=== PATIENT | male | born 1965 | race Caucasian/White ===

== ENCOUNTER → 2016-09-05 | Outpatient (REF) | payer OTHER ==
[~2016-09-05] MED LIST: ADV250INH INH; ALBU17IN INH; AMLO5TAB2 PO; AUGM875T27 PO; AZIT500T2 PO; CELE-19 PO; CEPH500T PO; CLAR10TA13 PO; CLAR1TAB2 PO; DOXY100C PO; FLAG500T PO; GUAI20TA PO; IMOD2TAB14 PO; MYLICON PO; NEUR600T PO; NICO21PAT TD; NICO7DIS23 TD; PANT40TA2 PO; PRED20TA PO; ROXI1TAB2 PO; TYLE325T5 PO; TYLE650T30 PO; XANA0.25 PO; ZOCO40TA PO; [UNRECOGNIZED DRUG - REMARK]
[2016-09-05 12:39] LABS: ALBUMIN 3.8 GM/DL (3.2-5.2); ALBUMIN/GLOBULIN RATIO 1.27 (1.00-1.93); ALKALINE PHOSPHATASE 66 U/L (45-117); ALT/SGPT 25 U/L (12-78); ANION GAP 12 MEQ/L (8-16); AST/SGOT 16 U/L (15-37); BILIRUBIN,TOTAL 0.4 MG/DL (0.2-1.0); BLOOD UREA NITROGEN 13 MG/DL (7-18); CALCIUM LEVEL 9.7 MG/DL (8.5-10.1); CARBON DIOXIDE LEVEL 24 MEQ/L (21-32); CHLORIDE LEVEL 109 MEQ/L (98-107); CHOLESTEROL LEVEL 278 MG/DL (<200); CREATININE FOR GFR 0.82 MG/DL (0.70-1.30); GLOMERULAR FILTRATION RATE > 60.0 (>56); GLUCOSE, FASTING 87 MG/DL (70-105); POTASSIUM SERUM 4.8 MEQ/L (3.5-5.1); SODIUM LEVEL 145 MEQ/L (136-145); TOTAL PROTEIN 6.8 GM/DL (6.4-8.2); TRIGLYCERIDES LEVEL 113 MG/DL (<150)
== END ==
LOC: M SFHCPLAZ 09:05
PROVIDERS: ATTEND Physician Assistant
DX: I10 Essential (primary) hypertension (principal); E78.5 Hyperlipidemia, unspecified; Z12.5 Encounter for screening for malignant neoplasm of prostate

== ENCOUNTER → 2016-09-05 | Outpatient (CLI) | payer OTHER | LOC: M WUC 11:14 | PROVIDERS: ATTEND Internal Medicine Cardiovascular Disease | DX: Z51.81 Encounter for therapeutic drug level monitoring (principal) ==

== ENCOUNTER → 2016-09-05 | Outpatient (REF) | payer OTHER | LOC: M LABDRAWP 11:34 | PROVIDERS: ATTEND Psychiatry & Neurology Neurology | DX: Z79.899 Other long term (current) drug therapy (principal); R25.1 Tremor, unspecified ==

== ENCOUNTER → 2016-09-17 | Outpatient (CLI) | payer OTHER ==
[~2016-09-17] MED LIST changes: -IMOD2TAB14 PO; +IMOD2TAB16 PO
[2016-09-17 16:46] LABS: BASO # 0.1 K/mm3 (0.0-0.2); BASO % 1.2 % (0.0-1.0); EOS # 0.4 K/mm3 (0.0-0.50); EOS % 3.5 % (0.0-3.0); LARGE UNSTAINED CELL # 0.1 K/mm3 (0.0-0.4); LARGE UNSTAINED CELL % 1.3 % (0.0-4.0); LYMPH # 1.8 K/mm3 (1.5-4.5); LYMPH % 15.4 % (24.0-44.0); MEAN CORPUSCULAR HEMOGLOBIN 34.3 pg (27.0-33.0); MEAN CORPUSCULAR HGB CONC 33.7 g/dl (32.0-36.5); MEAN CORPUSCULAR VOLUME 101.9 fl (80.0-96.0); MONO # 0.7 K/mm3 (0.0-0.8); MONO % 6.5 % (0.0-5.0); NEUTROPHILS # 7.6 K/mm3 (1.8-7.7); NEUTROPHILS % 72.2 % (36.0-66.0); PLATELET COUNT, AUTOMATED 177 k/mm3 (150-450); RED CELL DISTRIBUTION WIDTH 14.1 % (11.5-14.5); WHITE BLOOD COUNT 10.5 K/mm3 (4.0-10.0)
[2016-09-17 17:18] LABS: ANION GAP 6 MEQ/L (8-16); BLOOD UREA NITROGEN 9 MG/DL (7-18); CALCIUM LEVEL 10.1 MG/DL (8.5-10.1); CARBON DIOXIDE LEVEL 32 MEQ/L (21-32); CHLORIDE LEVEL 105 MEQ/L (98-107); CREATININE FOR GFR 0.92 MG/DL (0.70-1.30); GLOMERULAR FILTRATION RATE > 60.0 (>56); GLUCOSE, FASTING 88 MG/DL (70-105); SODIUM LEVEL 143 MEQ/L (136-145)
[2016-09-17 17:22] LABS: POTASSIUM SERUM 5.4 MEQ/L (3.5-5.1)
== END ==
LOC: M WUC 14:11
PROVIDERS: ATTEND Internal Medicine Cardiovascular Disease
DX: R07.9 Chest pain, unspecified (principal); R06.02 Shortness of breath

== ENCOUNTER → 2016-12-12 | Outpatient (CLI) | payer OTHER ==
[~2016-12-12] MED LIST changes: +NICO7DIS2 TD; -NICO7DIS23 TD
[2016-12-12 15:47] LABS: ALBUMIN 3.9 GM/DL (3.2-5.2); ALBUMIN/GLOBULIN RATIO 1.22 (1.00-1.93); ALKALINE PHOSPHATASE 74 U/L (45-117); ALT/SGPT 49 U/L (12-78); ANION GAP 6 MEQ/L (8-16); AST/SGOT 55 U/L (15-37); BILIRUBIN,TOTAL 0.5 MG/DL (0.2-1.0); BLOOD UREA NITROGEN 12 MG/DL (7-18); CALCIUM LEVEL 9.4 MG/DL (8.5-10.1); CARBON DIOXIDE LEVEL 30 MEQ/L (21-32); CHLORIDE LEVEL 104 MEQ/L (98-107); CREATININE FOR GFR 0.97 MG/DL (0.70-1.30); GLOMERULAR FILTRATION RATE > 60.0 (>56); GLUCOSE, FASTING 90 MG/DL (70-105); SODIUM LEVEL 140 MEQ/L (136-145); TOTAL PROTEIN 7.1 GM/DL (6.4-8.2)
[2016-12-12 15:48] LABS: POTASSIUM SERUM 5.3 MEQ/L (3.5-5.1)
== END ==
LOC: M WUC 13:38
PROVIDERS: ATTEND Psychiatry & Neurology Neurology
DX: R51 Headache (principal); Z51.81 Encounter for therapeutic drug level monitoring

== ENCOUNTER → 2017-03-13 | Outpatient (CLI) | payer BC, OTHER ==
[~2017-03-13] MED LIST changes: -AUGM875T27 PO; +AUGM875T28 PO; -CELE-19 PO; +CELE1CAP4 PO; -CLAR10TA13 PO; +CLAR1TAB13 PO; +CLOP75TA2; +DIVA500T3; +ISOS30TA4; +ROSU20TA
--- NOTE | 2017-03-13 12:03 | REP ---
Chest two views HISTORY: Chest pain Comparison: 03/02/2016 The lungs are hyperinflated. The lungs are clear. The heart is normal in size. The pulmonary vasculature is normal in appearance. The bony structure is intact. IMPRESSION: No acute disease. Signed by Garcia William MD 03/13/2017 11:54 A
== END ==
LOC: M WUC 11:25
PROVIDERS: ATTEND Physician Assistant
DX: J44.1 Chronic obstructive pulmonary disease with (acute) exacerbation (principal); Z72.0 Tobacco use

== ENCOUNTER 2017-05-18 22:10 | Emergency (ER) | payer BC, OTHER ==
[~2017-05-18] VITALS: Ht 180.3 cm; Wt 64.5 kg
[~2017-05-18 22:10] MED LIST changes: -CLOP75TA2; -DIVA500T3; -ISOS30TA4; -ROSU20TA
[2017-05-18] MEDS ORDERED: DIVA500T3 (22:28)
[2017-05-18] MEDS ORDERED: ISOS30TA4 (22:28)
[2017-05-18] MEDS ORDERED: ROSU20TA (22:28)
[2017-05-18] MEDS ORDERED: CLOP75TA2 (22:28)
[2017-05-18 23:21] VITALS: BP 124/73
== END 2017-05-18 23:57 | disposition home or self-care (01) ==
LOC: M ED 22:10
DX: R58 Hemorrhage, not elsewhere classified (principal); I25.10 Atherosclerotic heart disease of native coronary artery without angina pectoris; I10 Essential (primary) hypertension; J45.909 Unspecified asthma, uncomplicated; Z72.0 Tobacco use; Z98.61 Coronary angioplasty status

== ENCOUNTER → 2017-08-01 | Outpatient (CLI) | payer BC, OTHER ==
[~2017-08-01] MED LIST changes: +CLOP75TA2; +DIVA500T3; +ISOS30TA4; +ROSU20TA
--- NOTE | 2017-08-01 09:03 | REP ---
MAXILLOFACIAL CT WITHOUT CONTRAST: HISTORY: Septal deviation. COMPARISON: 09/06/2015. Mild mucosal thickening is present in the maxillary sinuses. Minimal mucosal thickening is present in the ethmoid and sphenoid sinuses. The frontal sinuses are clear. A retention cyst or polyp is present in the right maxillary sinus. Mucosal thickening involves the left ostiomeatal unit. The right ostiomeatal unit is patent. The middle and inferior nasal turbinates are partially paradoxical. There is minimal deviation of the nasal septum to the right. A spur is present arising from the right side of the nasal septum. The spur abuts the right inferior nasal turbinate and uncinate process. The cribriform plate, medial de leon of the orbits and optic canals are intact. The carotid canals form a segment of the posterolateral de leon of the sphenoid sinus. The sphenoid sinus septum inserts into the left internal carotid canal wall. IMPRESSION: 1. Sinus mucosal thickening as described above. 2. Right maxillary sinus retention cyst or polyp. Signed by Garcia William MD 08/01/2017 11:15 A
== END ==
LOC: M RAD 07:11
PROVIDERS: ATTEND Otolaryngology
DX: J34.2 Deviated nasal septum (principal); J34.89 Other specified disorders of nose and nasal sinuses

== ENCOUNTER → 2017-08-14 | Outpatient (CLI) | payer BC, OTHER ==
[2017-08-14 15:47] LABS: INR 0.9
[2017-08-14 16:02] LABS: ALBUMIN 3.9 GM/DL (3.2-5.2); ALBUMIN/GLOBULIN RATIO 1.08 (1.00-1.93); ALKALINE PHOSPHATASE 79 U/L (45-117); ALT/SGPT 23 U/L (12-78); ANION GAP 4 MEQ/L (8-16); AST/SGOT 26 U/L (7-37); BILIRUBIN,DIRECT 0.1 MG/DL (0.0-0.2); BILIRUBIN,TOTAL 0.5 MG/DL (0.2-1.0); BLOOD UREA NITROGEN 10 MG/DL (7-18); CALCIUM LEVEL 9.9 MG/DL (8.5-10.1); CARBON DIOXIDE LEVEL 30 MEQ/L (21-32); CHLORIDE LEVEL 105 MEQ/L (98-107); CREATININE FOR GFR 1.07 MG/DL (0.70-1.30); GLOMERULAR FILTRATION RATE > 60.0 (>56); GLUCOSE, FASTING 100 MG/DL (70-105); SODIUM LEVEL 139 MEQ/L (136-145); TOTAL PROTEIN 7.5 GM/DL (6.4-8.2)
[2017-08-14 16:06] LABS: POTASSIUM SERUM 5.3 MEQ/L (3.5-5.1)
== END ==
LOC: M LAB 15:08
PROVIDERS: ATTEND Family Medicine
DX: E72.20 Disorder of urea cycle metabolism, unspecified (principal); R35.1 Nocturia

== ENCOUNTER → 2017-11-01 | Outpatient (CLI) | payer OTHER, BC ==
[2017-11-01 13:49] LABS: BASO # 0.1 10^3/uL (0.0-0.2); BASO % 1.3 % (0.0-1.0); EOS # 0.4 10^3/uL (0.0-0.50); EOS % 4.8 % (0.0-3.0); HEMOGLOBIN 13.6 g/dl (14.0-18.0); IMMATURE GRANULOCYTE % 0.6 % (0-3.0); LYMPH # 1.6 10^3/uL (1.5-4.5); LYMPH % 17.8 % (24.0-44.0); MEAN CORPUSCULAR VOLUME 97.1 fl (80.0-96.0); MONO # 0.8 10^3/uL (0.0-0.8); MONO % 8.6 % (0.0-5.0); NEUTROPHILS # 5.9 10^3/uL (1.8-7.7); NEUTROPHILS % 66.9 % (36.0-66.0); PLATELET COUNT, AUTOMATED 214 10^3/uL (150-450); RED BLOOD COUNT 4.12 10^6/uL (4.30-6.10); RED CELL DISTRIBUTION WIDTH 14.6 % (11.5-14.5); WHITE BLOOD COUNT 8.7 10^3/uL (4.0-10.0)
[2017-11-01 14:05] LABS: AMMONIA 20 uMOL/L (<32)
[2017-11-01 14:26] LABS: ALBUMIN 3.8 GM/DL (3.2-5.2); ALBUMIN/GLOBULIN RATIO 1.19 (1.00-1.93); ALKALINE PHOSPHATASE 65 U/L (45-117); ALT/SGPT 26 U/L (12-78); ANION GAP 7 MEQ/L (8-16); AST/SGOT 24 U/L (7-37); BILIRUBIN,TOTAL 0.3 MG/DL (0.2-1.0); BLOOD UREA NITROGEN 12 MG/DL (7-18); CALCIUM LEVEL 9.4 MG/DL (8.5-10.1); CARBON DIOXIDE LEVEL 27 MEQ/L (21-32); CHLORIDE LEVEL 107 MEQ/L (98-107); CREATININE FOR GFR 0.96 MG/DL (0.70-1.30); GLOMERULAR FILTRATION RATE > 60.0 (>56); GLUCOSE, FASTING 89 MG/DL (70-100); SODIUM LEVEL 141 MEQ/L (136-145); VALPROIC ACID (DEPAKOTE) 25.5 UG/ML (50.0-100.0)
[2017-11-01 14:28] LABS: POTASSIUM SERUM 5.3 MEQ/L (3.5-5.1)
== END ==
LOC: M WUC 12:57
DX: R51 Headache (principal); Z79.899 Other long term (current) drug therapy

== ENCOUNTER 2018-02-06 09:02 | Day surgery (SDC) | payer BC, OTHER ==
[2018-02-06] MEDS: NS 1,000 ML IV (10:00)
[2018-02-06] MEDS ORDERED: ASPIRIN 81 MG CHEW TABLET As Ordered (10:18)
[2018-02-06] MEDS ORDERED: LABETALOL HCL 100 MG/20 ML VIAL As Ordered ×2 (10:40→10:41)
[2018-02-06] MEDS ORDERED: PROPOFOL 200 MG/20 ML VIAL As Ordered ×2 (10:41)
[2018-02-06] MEDS ORDERED: ASPIRIN 81 MG CHEW TABLET PO (10:45)
== END 2018-02-06 11:17 | disposition home or self-care (01) ==
LOC: M OPP 09:02
DX: Z12.11 Encounter for screening for malignant neoplasm of colon (principal); Z80.0 Family history of malignant neoplasm of digestive organs; Z86.010 Personal history of colon polyps; D12.5 Benign neoplasm of sigmoid colon; Z98.0 Intestinal bypass and anastomosis status; I25.10 Atherosclerotic heart disease of native coronary artery without angina pectoris; I10 Essential (primary) hypertension; R07.9 Chest pain, unspecified; E78.5 Hyperlipidemia, unspecified; Z95.5 Presence of coronary angioplasty implant and graft; K21.9 Gastro-esophageal reflux disease without esophagitis; R06.02 Shortness of breath; M19.90 Unspecified osteoarthritis, unspecified site; G43.909 Migraine, unspecified, not intractable, without status migrainosus; J45.909 Unspecified asthma, uncomplicated; J44.9 Chronic obstructive pulmonary disease, unspecified; Z87.19 Personal history of other diseases of the digestive system; F17.210 Nicotine dependence, cigarettes, uncomplicated; Z91.048 Other nonmedicinal substance allergy status; Z79.82 Long term (current) use of aspirin; Z79.899 Other long term (current) drug therapy; Z80.8 Family history of malignant neoplasm of other organs or systems; Z80.1 Family history of malignant neoplasm of trachea, bronchus and lung
CPT/HCPCS: 45385

== ENCOUNTER → 2018-03-25 | Outpatient (CLI) | payer BC, OTHER ==
[2018-03-25 17:04] LABS: ANION GAP 9 MEQ/L (8-16); BLOOD UREA NITROGEN 10 MG/DL (7-18); CALCIUM LEVEL 9.6 MG/DL (8.5-10.1); CARBON DIOXIDE LEVEL 27 MEQ/L (21-32); CHLORIDE LEVEL 105 MEQ/L (98-107); CHOLESTEROL LEVEL 211 MG/DL (<200); CHOLESTEROL RISK RATIO 1.971 (<5); CREATININE FOR GFR 0.97 MG/DL (0.70-1.30); GLOMERULAR FILTRATION RATE > 60.0 (>56); GLUCOSE, FASTING 95 MG/DL (70-100); HDL CHOLESTEROL 107 MG/DL (>40); NON-HDL-C 104 MG/DL; POTASSIUM SERUM 4.8 MEQ/L (3.5-5.1); SODIUM LEVEL 141 MEQ/L (136-145); TRIGLYCERIDES LEVEL 105 MG/DL (<150)
== END ==
LOC: M WUC 14:42
DX: E78.5 Hyperlipidemia, unspecified (principal); I10 Essential (primary) hypertension
CPT/HCPCS: 80061

== ENCOUNTER → 2018-03-26 | Outpatient (REF) | payer BC, OTHER ==
[2018-03-26 18:31] LABS: MALB URINE SIEMENS < 5.0 MG/L; MAU/CREAT RATIO 12.5 MCG/MG (0.0-30.0)
== END ==
LOC: M LAB REF 16:59
DX: E78.5 Hyperlipidemia, unspecified (principal); I10 Essential (primary) hypertension
CPT/HCPCS: 82043

== ENCOUNTER 2018-07-22 00:29 | Emergency (ER) | payer BC, OTHER ==
[2018-07-22] MEDS: dexameTHASONE 20 MG/5 ML VIAL (J1100) IV (02:26)
[2018-07-22] MEDS: IPRATROPIUM 0.5MG/ALBUTEROL 2.5MG INH SOL UD 3ML (DUONEB)(J7620) NEB ×3 (02:35→03:26)
[2018-07-22] MEDS: ACETAMINOPHEN/CODEINE 300MG/30MG 12.5 ML UDC PO (04:34)
== END 2018-07-22 04:38 | disposition home or self-care (01) ==
LOC: M ED 00:29
DX: J42 Unspecified chronic bronchitis (principal); I25.10 Atherosclerotic heart disease of native coronary artery without angina pectoris; I11.9 Hypertensive heart disease without heart failure; E78.5 Hyperlipidemia, unspecified; F17.200 Nicotine dependence, unspecified, uncomplicated; Z95.5 Presence of coronary angioplasty implant and graft; Z91.048 Other nonmedicinal substance allergy status; Z79.899 Other long term (current) drug therapy; Z79.02 Long term (current) use of antithrombotics/antiplatelets; Z79.51 Long term (current) use of inhaled steroids; Z79.82 Long term (current) use of aspirin; Z79.2 Long term (current) use of antibiotics; Z79.52 Long term (current) use of systemic steroids
CPT/HCPCS: J1100

== ENCOUNTER → 2018-07-30 | Outpatient (CLI) | payer BC, OTHER ==
[2018-07-30 18:40] LABS: TROPONIN I < 0.02 NG/ML (< 0.10)
[2018-07-30 18:40] LABS: CPK CREATINE PHOSPHOKINASE 46 U/L (39-308)
== END ==
LOC: M WUC 16:27
DX: R07.9 Chest pain, unspecified (principal); I25.10 Atherosclerotic heart disease of native coronary artery without angina pectoris
CPT/HCPCS: 82550

== ENCOUNTER → 2018-08-12 | Outpatient (CLI) | payer BC, OTHER ==
[~2018-08-12] MED LIST changes: -AMLO5TAB2 PO; +AMLO5TAB4 PO; +ASPI1TAB PO; +BISO5TAB5 PO; +BREO1INH3 INH; +BUPR1TAB53 PO; -CLOP75TA2; +CLOP75TA2 PO; -DIVA500T3; +DIVA500T94 PO; +DOXY-350 PO; +FLON50SP; -ISOS30TA4; +ISOS30TA4 PO; +NITR4TASL SL; -PANT40TA2 PO; +PANT40TA3 PO; +PROAAER10 INH; -ROSU20TA; +ROSU20TA4 PO; +SPIR1CAP INH; +VENTAER INH
--- NOTE | 2018-08-13 07:44 | REP ---
Chest two views HISTORY: COPD Comparison: 07/22/2018 The lungs are hyperinflated. The lungs are clear. The heart is normal in size. The pulmonary vasculature is normal in appearance. The bony structure is intact. IMPRESSION: No acute disease. Electronically Signed by Garcia William MD 08/12/2018 03:39 P
== END ==
LOC: M WUC 15:17
PROVIDERS: ATTEND Physician Assistant
DX: J44.1 Chronic obstructive pulmonary disease with (acute) exacerbation (principal)

== ENCOUNTER → 2019-05-13 | Outpatient (CLI) | payer BC, OTHER ==
[~2019-05-13] MED LIST changes: -AMLO5TAB4 PO; +AMLO5TAB6 PO; -ASPI1TAB PO; +ASPI81TA26 PO; -BISO5TAB5 PO; +BISO5TAB9 PO; +NICO21DI3 TD; -NICO21PAT TD; -ROSU20TA4 PO; +ROSU20TA5 PO
--- NOTE | 2019-05-13 09:30 | REP ---
MRI RIGHT SHOULDER: TECHNIQUE: Axial T2 fat sat, gradient echo, sagittal oblique T2 fat sat, coronal oblique T1, T2 fat sat. There is focal increased signal in T2-weighted images in the distal supraspinatus tendon consistent with a full thickness partial tear. Other rotator cuff tendons appear intact. There is minor hypertrophic degenerative change at the acromioclavicular joint. The acromion is type II. The biceps tendon is within the bicipital groove with no tendosynovitis. There is on Hill-Sachs deformity. The deltoid muscle demonstrates no abnormal signal. On T2-weighted images there is linear increased signal involving the superior labrum suggesting a SLAP tear. Similar findings are seen involving the inferior labrum, suggesting an inferior labral tear. No paralabral cyst is seen. Bone marrow signal is homogeneous and unremarkable with no bone marrow edema or occult fracture. There is mild fluid in the subacromial subdeltoid bursae. IMPRESSION: Full thickness partial tear distal supraspinatus tendon. Very mild hypertrophic degenerative changes acromioclavicular joint with a type II acromion. There is mild fluid in the subacromial subdeltoid bursae. There are findings suggesting a SLAP tear and inferior labral tear. This could be confirmed with MR arthrogram. Electronically Signed by Gregory Brown MD 05/14/2019 04:37 P
== END ==
LOC: M RAD 07:17
PROVIDERS: ATTEND Orthopaedic Surgery Sports Medicine
DX: S46.911A Strain of unspecified muscle, fascia and tendon at shoulder and upper arm level, right arm, initial encounter (principal); X58.XXXA Exposure to other specified factors, initial encounter; Y92.9 Unspecified place or not applicable

== ENCOUNTER → 2019-09-17 | Outpatient (CLI) | payer BC, OTHER ==
[~2019-09-17] MED LIST changes: -AZIT500T2 PO; +AZIT500T5 PO; +BISO5TAB14 PO; -BISO5TAB9 PO
--- NOTE | 2019-09-17 11:25 | REP ---
MRI RIGHT KNEE WITHOUT CONTRAST: HISTORY: Pain in the right knee. No comparison imaging. TECHNIQUE: Axial, coronal and sagittal imaging planes are utilized. T1, proton density and T2-weighted scans were obtained in the usual fashion with and without fat saturation. MRI FINDINGS: Cortical and medullary bone signal intensity are normal. There are small bone islands one in each femoral condyle. There is no evidence of significant joint effusion. No Aden's cyst is seen. Patellar and quadriceps tendons have an intact appearance. There is a small quantity of fluid posterior to the proximal and distal patellar tendon attachments which may reflect patellar tendonitis. Anterior and posterior cruciate ligaments have an intact appearance. There is no evidence of medial or lateral collateral ligament disruption. No medial or lateral meniscal tear is seen. No articular cartilaginous abnormality is seen. IMPRESSION: There is a small quantity of fluid at the proximal and distal insertions of the patellar tendon. Otherwise negative MRI right knee. Electronically Signed by Kyle Rashid MD 09/17/2019 11:30 A
== END ==
LOC: M RAD 09:32
PROVIDERS: ATTEND Orthopaedic Surgery Sports Medicine
DX: M25.561 Pain in right knee (principal)

== ENCOUNTER → 2019-10-13 | Outpatient (REF) | payer OTHER ==
[2019-10-13 17:59] LABS: ALBUMIN 4.4 GM/DL (3.2-5.2); ALT/SGPT 53 U/L (12-78); BILIRUBIN,TOTAL 0.4 MG/DL (0.2-1.0); BLOOD UREA NITROGEN 10 MG/DL (7-18); CARBON DIOXIDE LEVEL 27 MEQ/L (21-32); CHLORIDE LEVEL 106 MEQ/L (98-107); CHOLESTEROL LEVEL 217 MG/DL (<200); CHOLESTEROL RISK RATIO 2.148 (<5); CREATININE FOR GFR 0.83 MG/DL (0.70-1.30); GLOMERULAR FILTRATION RATE > 60.0 (>56); GLUCOSE, FASTING 86 MG/DL (70-100); HDL CHOLESTEROL 101 MG/DL (>40); LDL CHOLESTEROL 100 MG/DL (<100); NON-HDL-C 116 MG/DL; POTASSIUM SERUM 4.9 MEQ/L (3.5-5.1); SODIUM LEVEL 138 MEQ/L (136-145); TOTAL PROTEIN 7.5 GM/DL (6.4-8.2); TRIGLYCERIDES LEVEL 78 MG/DL (<150)
== END ==
LOC: M SFHCPLAZ 13:26
PROVIDERS: ATTEND Family Medicine
DX: I10 Essential (primary) hypertension (principal); Z72.89 Other problems related to lifestyle; E78.2 Mixed hyperlipidemia; Z12.5 Encounter for screening for malignant neoplasm of prostate
CPT/HCPCS: 36415; 80053; 80061; G0103

== ENCOUNTER → 2020-02-09 | Outpatient (REF) | payer OTHER ==
[~2020-02-09] MED LIST changes: +AMLO1TAB24 PO; +AMLO1TAB25 PO; -AMLO5TAB6 PO; +ISOS1TAB35 PO; -ISOS30TA4 PO; +PANT40TA29 PO; -PANT40TA3 PO; +PLAV1TAB2 PO; +ROSU40TA4 PO; +SPIR12.9 INH
[2020-02-09 18:10] LABS: ALBUMIN 3.5 GM/DL (3.2-5.2); ALT/SGPT 78 U/L (12-78); BILIRUBIN,TOTAL 0.4 MG/DL (0.2-1.0); BLOOD UREA NITROGEN 7 MG/DL (7-18); CARBON DIOXIDE LEVEL 26 MEQ/L (21-32); CHLORIDE LEVEL 109 MEQ/L (98-107); CREATININE FOR GFR 0.77 MG/DL (0.70-1.30); GLOMERULAR FILTRATION RATE > 60.0 (>56); GLUCOSE, FASTING 82 MG/DL (70-100); POTASSIUM SERUM 4.9 MEQ/L (3.5-5.1); SODIUM LEVEL 141 MEQ/L (136-145); TOTAL PROTEIN 6.3 GM/DL (6.4-8.2)
== END ==
LOC: M SFHCPLAZ 14:52
PROVIDERS: ATTEND Family Medicine
DX: R74.0 Nonspecific elevation of levels of transaminase and lactic acid dehydrogenase [LDH] (principal)

== ENCOUNTER → 2020-03-11 | Outpatient (CLI) | payer BC, OTHER ==
[~2020-03-11] MED LIST changes: -ISOS1TAB35 PO; +ISOS30TA4 PO
--- NOTE | 2020-03-11 16:32 | REP ---
REASON FOR EXAM: Tobacco abuse. COMPARISON EXAM: 02/03/2019 Once again, as per the protocol, only lung window images were sent to the read station for interpretation. No abnormal nodules, masses, or opacities have developed since the last exam. Grossly, the mediastinum and pulmonary marcus are unchanged. Grossly, the imaged upper abdomen and imaged osseous structures are unchanged. IMPRESSION: Stable negative category 1 low-dose screening CT examination of the lungs. Electronically Signed by Julio Cesar Chen DO 03/11/2020 05:04 P
== END ==
LOC: M RAD 13:30
PROVIDERS: ATTEND Nurse Practitioner Family
DX: F17.218 Nicotine dependence, cigarettes, with other nicotine-induced disorders (principal)

== ENCOUNTER 2020-03-16 20:07 | Inpatient (IN) | payer BC, OTHER ==
[~2020-03-16] VITALS: Ht 180.3 cm; Wt 60.9 kg
[~2020-03-16 20:07] MED LIST changes: -AMLO1TAB25 PO; -PLAV1TAB2 PO; -ROSU40TA4 PO; -SPIR12.9 INH
[2020-03-16 21:56] LABS: BASO # 0.1 10^3/uL (0.0-0.2); BASO % 1.4 % (0.0-1.0); EOS # 0.4 10^3/uL (0.0-0.5); EOS % 4.1 % (0.0-3.0); HEMATOCRIT 43.3 % (42.0-52.0); HEMOGLOBIN 14.9 g/dl (13.5-17.5); LYMPH # 1.8 10^3/uL (1.5-5.0); LYMPH % 17.9 % (24.0-44.0); MEAN CORPUSCULAR HEMOGLOBIN 33.7 pg (27.0-33.0); MEAN CORPUSCULAR HGB CONC 34.4 g/dl (32.0-36.5); MONO # 0.9 10^3/uL (0.0-0.8); MONO % 8.8 % (0.0-5.0); NEUTROPHILS # 6.9 10^3/uL (1.5-8.5); NEUTROPHILS % 66.9 % (36.0-66.0); PLATELET COUNT, AUTOMATED 287 10^3/uL (150-450); RED BLOOD COUNT 4.42 10^6/uL (4.30-6.10); WHITE BLOOD COUNT 10.3 10^3/uL (4.0-10.0)
[2020-03-16] MEDS ORDERED: MORPHINE 4 MG/ML 1ML VIAL/SYRINGE (J2270) IV ONE (22:15)
[2020-03-16] MEDS ORDERED: ISOVUE-370 76% 100ML VIAL As Ordered ONE (22:16)
[2020-03-16 22:22] LABS: ALBUMIN 3.9 GM/DL (3.2-5.2); BILIRUBIN,DIRECT 0.1 MG/DL (0.0-0.2); BILIRUBIN,TOTAL 0.3 MG/DL (0.2-1.0)
--- NOTE | 2020-03-16 22:49 | REPVR ---
PROCEDURE INFORMATION: Exam: CT Abdomen And Pelvis With Contrast Exam date and time: 03/16/2020 10:31 PM Age: 54 years old Clinical indication: Abdominal pain; Additional info: Lower abd pain TECHNIQUE: Imaging protocol: Computed tomography of the abdomen and pelvis with intravenous contrast. Radiation optimization: All CT scans at this facility use at least one of these dose optimization techniques: automated exposure control; mA and/or kV adjustment per patient size (includes targeted exams where dose is matched to clinical indication); or iterative reconstruction. Contrast material: ISO 370; Contrast volume: 100 ml; Contrast route: INTRAVENOUS (IV); COMPARISON: CT ABD PELVIS WITH CONTRAST 05/12/2014 4:27 PM FINDINGS: Lungs: Atelectasis left lower lobe. Liver: There is a diffuse decrease in hepatic parenchymal density, consistent with steatosis. Gallbladder and bile ducts: Normal. No calcified stones. No ductal dilation. Pancreas: Normal. No ductal dilation. Spleen: Normal. No splenomegaly. Adrenals: Normal. No mass. Kidneys and ureters: Normal. No hydronephrosis. Stomach and bowel: Bowel sutures and surgical clips in the right lower quadrant status post right hemicolectomy. There is a boggy appearance of the distal transverse, splenic flexure, left , sigmoid colon and rectum including wall thickening, mural stratification, with minimal pericolonic inflammation. Clinical correlation to exclude subacute to acute colitis suggested. Dilated loops of small bowel demonstrated in the mid and lower abdomen measuring up to 3.3 cm may indicate an ileus or developing small bowel obstruction, findings which should be correlated clinically. Appendix: No evidence of appendicitis. Intraperitoneal space: Unremarkable. No free air. No significant fluid collection. Vasculature: The aorta demonstrates moderate atherosclerotic calcification. Lymph nodes: Unremarkable. No enlarged lymph nodes. Bladder: Unremarkable as visualized. Reproductive: The prostate gland demonstrates moderate hyperplasia. Bones/joints: Moderate central spinal stenosis L2-L3, mild central spinal stenosis L3-L4, severe central spinal stenosis L4-L5. Posterior disc protrusion L5-S1 possibly impinging on the proximal S1 nerve roots as they exit from the thecal sac. Soft tissues: Small right inguinal hernia. IMPRESSION: 1. There is a diffuse decrease in hepatic parenchymal density, consistent with steatosis. 2. Moderate prostatic hyperplasia. 3. There is a boggy appearance of the distal transverse, splenic flexure, left , sigmoid colon and rectum including wall thickening, mural stratification, with minimal pericolonic inflammation. Clinical correlation to exclude subacute to acute colitis suggested. 4. Dilated loops of small bowel demonstrated in the mid and lower abdomen may indicate an ileus or developing small bowel obstruction, findings which should be correlated clinically. Electronically signed by: Tim Sheth On 03/16/2020 22:49:32 PM
[2020-03-16] MEDS ORDERED: PIPERACILLIN/TAZOBACTAM SOD 3.375 GM in D5W MINI-BAG PLUS 50 ML IV ONE (23:15)
[2020-03-17] MEDS ORDERED: MORPHINE 4 MG/ML 1ML VIAL/SYRINGE (J2270) IV ONE
[2020-03-17] MEDS ORDERED: MORPHINE 4 MG/ML 1ML VIAL/SYRINGE (J2270) IV PRN (00:15)
[2020-03-17] MEDS ORDERED: AMLO1TAB25 PO (00:31)
[2020-03-17] MEDS ORDERED: ROSU40TA4 PO (00:31)
[2020-03-17] MEDS ORDERED: PLAV1TAB2 PO (00:31)
[2020-03-17] MEDS ORDERED: ISOS30TA4 PO (00:31)
[2020-03-17] MEDS ORDERED: SPIR12.9 INH (00:31)
[2020-03-17] MEDS: NS 1,000 ML IV SCH ×2 (00:55→09:09)
[2020-03-17 01:01] VITALS: BP 154/70
[2020-03-17 01:45] VITALS: BP 154/70
[2020-03-17] MEDS ORDERED: ACETAMINOPHEN *IV* 1,000 MG in IV 1 EA IV ONE (01:45)
[2020-03-17] MEDS ORDERED: LORazepam 2 MG TAB PO PRN (01:45)
[2020-03-17] MEDS ORDERED: FLUTICASONE PROP 0.05% NASAL SPRAY 16 GM (FLONASE) PRN (02:00)
[2020-03-17] MEDS ORDERED: ALBUTEROL 90 MCG/ACT 8GM HFA INHALER INH PRN (02:00)
[2020-03-17] MEDS ORDERED: NITROGLYCERIN 0.4 MG SUBL TABLET SL PRN (02:00)
--- NOTE | 2020-03-17 02:36 | HPEPDOC ---
General Date of Admission Mar 17, 2020 at 00:03 Date of Service: Mar 17, 2020 Attending Physician: MO DE LEON MD Chief Complaint The patient is a 54-year-old male admitted with a reason for visit of Colitis, Small Bowel Obstruction. Source: Patient Exam Limitations: No limitations Timing/Duration: This afternoon Severity: Severe Associated Symptoms: Other (abdominal pain) History of Present Illness 54 yo man with a history of remote SBO, s/p partial colectomy, daily alcohol consumption, nicotine addiction, CAD s/p remote PCI and remains on plavix, apparently for life, COPD, asthma, HTN, HLD who presented to the ED with acute severe diffuse abdominal pain after 2 episodes of diarrhea prior to the beginning of the abdominal pain, without a history of recent illness, travel, fever, chills, new foods or takeout, sick contacts, nausea, emesis, hematochezia or melena, recent history of weight loss. In the ED, he was hemodynamically stable, afebrile in moderate distress reporting 10/10 abdominal pain for which he was given morphine 4mg IV with improvement to 8/10 and got a second dose. Workup was notable for CT A/P that showed hepatic steatosis, distal transverse colon, splenic flexure, left sigmoid colon and rectal wall thickening with mural stratification with minimal pericolonic inflammation c/f acute vs. subacute colitis, as well as dilated loops of small bowel in mid and lower abdomen c/w ileus vs. developing SBO. Labs showed WBC 1-./3, Hgb 14.9, platelets 287, Na 138, K 3.8, Cr 0.9, lipase and LFTs wnl. Given the colitis and ileus vs. developing SBO he was given empiric pip/tazo and on my evaluation, I made him NPO and started him on maintenance fluids at 125cc/hr and placed a surgical consult for evaluation in the morning and admitted him to medicine. Home Medications Scheduled Amlodipine Besylate (Amlodipine Besylate) 10 Mg Tablet, 10 MG PO QPM, (Reported) IN THE AFTERNOON Aspirin (Aspirin EC) 81 Mg Tab, 81 MG PO QPM, (Reported) IN THE AFTERNOON Bisoprolol Fumarate (Bisoprolol Fumarate) 5 Mg Tab, 5 MG PO QPM, (Reported) IN THE AFTERNOON Bupropion HCl (Bupropion HCl Sr) 150 Mg Tab, 150 MG PO QPM, (Reported) IN THE AFTERNOON Clopidogrel Bisulfate (Plavix) 75 Mg Tablet, 75 MG PO QPM, (Reported) IN THE AFTERNOON Isosorbide Mononitrate (Isosorbide Mononitrate ER) 30 Mg Tab.er.24h, 30 MG PO QPM, (Reported) IN THE AFTERNOON Rosuvastatin Calcium (Rosuvastatin Calcium) 40 Mg Tablet, 40 MG PO QPM, (Reported) IN THE AFTERNOON Tiotropium Regina (Spiriva Respimat) 4 Gm Mist.inhal, 2 PUFFS INH QPM, (Reported) IN THE AFTERNOON Scheduled PRN Albuterol Sulfate (Ventolin Hfa) 108 Mcg/Act Aer, 2 PUFFS INH Q4H PRN for SHORTNESS OF BREATH, (Reported) Fluticasone Propionate (Children's Flonase Allergy Rlf) 50 Mcg/Act Spr, 2 SPRAYS NA DAILY PRN for NASAL CONGESTION, (Reported) Nitroglycerin (Nitrostat) 0.4 Mg Subl, 0.4 MG SL NITRO PRN for CHEST PAIN, (Reported) Allergies Coded Allergies: copper (Verified Allergy, Mild, RASH, 03/16/20) nickel (Verified Allergy, Mild, RASH, 03/16/20) Past Medical History Medical History HTN HLD COPD Asthma CAD s/p PCI History of SBO s/p partial colectomy Nicotine dependence Daily alcohol consumption, ~5 drinks Surgical History Partial colectomy laminectomy rotator cuff surgery coronary PCI Family History Significant Family History: No pertinent family hx Social History * Smoker: current smoker Alcohol: heavy (5 beers daily) Drugs: denies Recent Travel/Sick Contacts: Denies: Recent travel, Recent sick contacts Psychosocial History: No pertinent psych hx A-FIB/CHADSVASC A-FIB History Current/History of A-Fib/PAF?: No Current PO Anticoag Therapy: No Age/Risk Factor Scoring CHADSVASC: CHADSVASC Response (Comments) Value Age Risk Factor Age < 65 years old 0 Gender Risk Factor Male 0 Hx of CHF No 0 Hx of HTN Yes 1 Hx of Stroke/TIA/or VTE No 0 Hx of Diabetes No 0 Hx of Vascular Disease Yes 1 Total 2 Treatment Treatment ordered: NONE Reason Anticoagulant not given: Not indicated/[id number] Review of Systems Constitutional: Denies: Chills, Fever, Night Sweats Eyes: Denies: Pain, Vision change ENT: Denies: Head Aches, Ear Pain, Dysphagia Skin: Denies: Rash, Lesions, Breakdown Pulmonary: Denies: Dyspnea, Cough Cardiovascular: Denies: Chest Pain, Palpitations, Orthopnea, Paroxysmal Noc. Dyspnea, Lt Headedness Gastrointestinal: Reports: Abdominal Pain, Diarrhea; Denies: Nausea, Vomiting, Constipation, Melena, Hematochezia Genitourinary: Denies: Dysuria, Frequency, Incontinence, Retention Hematologic: Denies: Bruising, Bleeding Excessively Endocrine: Denies: Polydipsia, Polyphagia, Polyuria, Heat Intolerance, Cold Intolerance, Other Endocrine Sx Musculoskeletal: Reports: Back Pain (chronic); Denies: Neck Pain, Joint Pain, Muscle Pain, Spasms Neurological: Denies: Weakness, Numbness, Change in speech, Confusion Psych: Reports: Mood Normal; Denies: Depression, Memory Issues Physical Examination General Exam: Positive: Alert, No Acute Distress Eye Exam: Positive: PERRLA, Conjunctiva & lids normal, EOMI; Negative: Sclera icteric ENT Exam: Positive: Atraumatic, Mucous membr. moist/pink, Pharynx Normal Neck Exam: Positive: Supple; Negative: JVD, thyromegaly Chest Exam: Positive: Clear to auscultation, Normal air movement Heart Exam: Positive: Rate Normal, Regular Rhythm, Normal S1, Normal S2; Negative: Murmurs, Rubs Telemetry: Positive: No significant arrhythmia Abdomen Exam: Positive: BS Hypoactive, Soft, Tenderness (throughout, without rebound or guarding); Negative: Hepatospenomegaly, Mass, Hernia Extremity Exam: Positive: Normal pulses; Negative: Clubbing, Cyanosis, Edema Skin Exam: Positive: Nl turgor and temperature; Negative: Breakdown, Lesion Neuro Exam: Positive: Normal Speech, Strength at 5/5 X4 ext, Normal Tone Psych Exam: Positive: Mental status NL, Oriented x 3 Vital Signs Vital Signs Date Time Temp Pulse Resp B/P (MAP) Pulse Ox O2 Delivery O2 Flow Rate FiO2 03/17/20 00:59 98.1 61 18 142/85 (104) 97 Room Air Laboratory Data Labs 24H Laboratory Tests 2 03/16/20 21:31: Immature Granulocyte % (Auto) 0.9, Neutrophils (%) (Auto) 66.9H, Lymphocytes (%) (Auto) 17.9L, Monocytes (%) (Auto) 8.8H, Eosinophils (%) (Auto) 4.1H, Basophils (%) (Auto) 1.4H, Neutrophils # (Auto) 6.9, Lymphocytes # (Auto) 1.8, Monocytes # (Auto) 0.9H, Eosinophils # (Auto) 0.4, Basophils # (Auto) 0.1, Nucleated Red Blood Cells % (auto) 0.0, Total Bilirubin 0.3, Direct Bilirubin 0.1, Aspartate Amino Transf (AST/SGOT) 36, Alanine Aminotransferase (ALT/SGPT) 44, Alkaline Phosphatase 73, Total Protein 7.0, Albumin 3.9, Albumin/Globulin Ratio 1.3, Lipase 185 03/16/20 21:42: POC Glucose (Misc Panel) 85, POC Sodium (Misc Panel) 138, POC Potassium (Misc Panel) 3.8, POC Chloride (Misc Panel) 102, POC Total CO2 (Misc Panel) 23.0, POC Blood Urea Nitrogen (Misc Panel 5L, POC Ionized Calcium (Misc Panel) 4.5, POC Creatinine (Misc Panel) 0.9, POC Hematocrit (Misc Panel) 47.0 CBC/BMP Laboratory Tests 03/16/20 21:31 Assessment/Plan 54 yo man with a history of remote SBO, s/p partial colectomy, daily alcohol consumption, nicotine addiction, CAD s/p remote PCI and remains on plavix, apparently for life, COPD, asthma, HTN, HLD who presented to the ED with acute severe diffuse abdominal pain after 2 episodes of diarrhea prior to the beginning of the abdominal pain and found to have acute mild colitis and ileus vs. early SBO. Mild colitis: -Send stool for GI panel if he has further diarrhea -continue empiric pip/tazo -IVF, NS at 125cc/hr -Pain management with morphine [id number] for severe pain Ileus vs. early SBO: with a remote history of SBO, s/p partial colectomy -IVF with NS at 125cc/hr -Bowel rest, NPO except meds -Abdominal exam reveals a diffusely moderately tender abdomen without distention or surgical abdomen findings -Consult gen surgery in the morning, order placed, day team to call in the morning CAD s/p remote PCI: -Follows with Dr. Schulz. I think it would be helpful to have a conversation with him about the forever plavix that he patient mentioned that he has to be on it for life, for a remote stent and clarify the plan -ASA 81 -PRN SLN for chest pain -continued to encourage quitting smoking as he has been struggling with quitting efforts Nicotine addiction: -As discussed above, working on quitting and has been working and struggling with it -continue bupropion HTN: -continue home amlodipine, bisoprolol and isosorbide mononitrate COPD and history of asthma -continue home spiriva -continue PRN albuterol and flonase HLD: -continue home rosuvastatin Significant daily alcohol intake wit hepatic steatosis: -placed on CIWA with symptom triggered ativan PRN -Thiamine, folate DVT ppx: heparin SQ and TEDs Dispo: medsurg Plan / VTE VTE Prophylaxis Ordered?: Yes MO DE LEON MD Mar 17, 2020 02:36
[2020-03-17 06:00] VITALS: BP 152/69
[2020-03-17] MEDS ORDERED: PIPERACILLIN/TAZOBACTAM SOD 3.375 GM in D5W MINI-BAG PLUS 50 ML IV SCH (06:00)
[2020-03-17] MEDS ORDERED: TIOTROPIUM INHALER/CAPSULE (SPIRIVA) INH SCH (08:00)
--- NOTE | 2020-03-17 08:06 | ECGEPIP ---
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
[2020-03-17 08:22] LABS: HEMATOCRIT 40.4 % (42.0-52.0); MEAN CORPUSCULAR HEMOGLOBIN 34.5 pg (27.0-33.0); MEAN CORPUSCULAR HGB CONC 34.7 g/dl (32.0-36.5); MEAN CORPUSCULAR VOLUME 99.5 fl (80.0-96.0); PLATELET COUNT, AUTOMATED 258 10^3/uL (150-450); RED BLOOD COUNT 4.06 10^6/uL (4.30-6.10); WHITE BLOOD COUNT 12.6 10^3/uL (4.0-10.0)
[2020-03-17 08:46] LABS: BLOOD UREA NITROGEN 6 MG/DL (7-18); CALCIUM LEVEL 8.9 MG/DL (8.5-10.1); CARBON DIOXIDE LEVEL 24 MEQ/L (21-32); CHLORIDE LEVEL 106 MEQ/L (98-107); CREATININE FOR GFR 0.71 MG/DL (0.70-1.30); GLOMERULAR FILTRATION RATE > 60.0 (>56); GLUCOSE, FASTING 78 MG/DL (70-100); MAGNESIUM LEVEL 2.1 MG/DL (1.8-2.4); POTASSIUM SERUM 4.5 MEQ/L (3.5-5.1); SODIUM LEVEL 140 MEQ/L (136-145)
[2020-03-17] MEDS ORDERED: HEPARIN SOD (PORCINE) 5000UNITS/ML 1ML VIAL/SYRINGE SC SCH (09:00)
[2020-03-17] MEDS ORDERED: THIAMINE 100 MG TAB PO SCH (09:00)
[2020-03-17] MEDS ORDERED: FOLIC ACID 1 MG TAB PO SCH (09:00)
[2020-03-17] MEDS ORDERED: MULTIVITAMINS/MINERALS THERAP 1 TAB PO SCH (09:00)
[2020-03-17 09:15] VITALS: BP 130/73
[2020-03-17] MEDS ORDERED: CLOPIDOGREL 75 MG TAB PO SCH (14:00)
[2020-03-17] MEDS ORDERED: amLODIPine 10 MG TAB PO SCH (14:00)
[2020-03-17] MEDS ORDERED: ASPIRIN 81 MG ENTERIC TAB PO SCH (14:00)
[2020-03-17] MEDS ORDERED: ISOSORBIDE MON. (IMDUR) 30 MG XR TAB PO SCH (14:00)
[2020-03-17] MEDS ORDERED: ROSUVASTATIN 10 MG TAB (CRESTOR) PO SCH (14:00)
[2020-03-17] MEDS ORDERED: buPROPion **SR TABLET** (ZYBAN) 150MG PO SCH (14:00)
[2020-03-17] MEDS ORDERED: bisoproloL fumarate 5 MG TAB PO SCH (14:00)
== END 2020-03-18 11:30 | disposition home or self-care (01) | DRG 249 ==
LOC: M ED 20:07 → M ED INP 03-17 00:03 → ENRESERV 03-17 00:25 → M MSPAV 03-17 01:02
PROVIDERS: ADMIT Internal Medicine; ATTEND Internal Medicine
DX: K52.9 Noninfective gastroenteritis and colitis, unspecified (principal); I10 Essential (primary) hypertension; F10.10 Alcohol abuse, uncomplicated; J44.9 Chronic obstructive pulmonary disease, unspecified; K56.7 Ileus, unspecified; F17.200 Nicotine dependence, unspecified, uncomplicated; I25.10 Atherosclerotic heart disease of native coronary artery without angina pectoris; Z79.82 Long term (current) use of aspirin; Z79.899 Other long term (current) drug therapy; Z88.8 Allergy status to other drugs, medicaments and biological substances

== ENCOUNTER → 2020-03-31 | Outpatient (REF) | payer BC, OTHER ==
[~2020-03-31] MED LIST changes: +AMLO1TAB25 PO; +PLAV1TAB2 PO; +ROSU40TA4 PO; +SPIR12.9 INH
[2020-04-29 23:10] LABS: HEMATOCRIT 47.5 % (42.0-52.0); HEMOGLOBIN 16.1 g/dl (13.5-17.5); MEAN CORPUSCULAR HEMOGLOBIN 33.8 pg (27.0-33.0); MEAN CORPUSCULAR HGB CONC 33.9 g/dl (32.0-36.5); MEAN CORPUSCULAR VOLUME 99.6 fl (80.0-96.0); PLATELET COUNT, AUTOMATED 349 10^3/uL (150-450); RED BLOOD COUNT 4.77 10^6/uL (4.30-6.10); WHITE BLOOD COUNT 8.8 10^3/uL (4.0-10.0)
[2020-05-28 16:27] LABS: ALBUMIN 4.2 GM/DL (3.2-5.2); ALT/SGPT 31 U/L (12-78); BILIRUBIN,TOTAL 0.4 MG/DL (0.2-1.0); BLOOD UREA NITROGEN 10 MG/DL (7-18); CARBON DIOXIDE LEVEL 28 MEQ/L (21-32); CHLORIDE LEVEL 109 MEQ/L (98-107); CREATININE FOR GFR 0.84 MG/DL (0.70-1.30); GLOMERULAR FILTRATION RATE > 60.0 (>56); GLUCOSE, FASTING 80 MG/DL (70-100); POTASSIUM SERUM 5.3 MEQ/L (3.5-5.1); SODIUM LEVEL 141 MEQ/L (136-145); TOTAL PROTEIN 7.6 GM/DL (6.4-8.2)
== END ==
LOC: M SFHCPLAZ 16:06
PROVIDERS: ATTEND Family Medicine
DX: D64.9 Anemia, unspecified (principal); R74.0 Nonspecific elevation of levels of transaminase and lactic acid dehydrogenase [LDH]

== ENCOUNTER → 2020-04-07 | Outpatient (REF) | payer OTHER, BC ==
[2020-05-25 21:14] LABS: BLOOD UREA NITROGEN 7 MG/DL (7-18); CALCIUM LEVEL 9.8 MG/DL (8.5-10.1); CARBON DIOXIDE LEVEL 27 MEQ/L (21-32); CHLORIDE LEVEL 108 MEQ/L (98-107); CREATININE FOR GFR 0.85 MG/DL (0.70-1.30); GLOMERULAR FILTRATION RATE > 60.0 (>56); GLUCOSE, FASTING 86 MG/DL (70-100); POTASSIUM SERUM 4.4 MEQ/L (3.5-5.1); SODIUM LEVEL 140 MEQ/L (136-145)
== END ==
LOC: M SFHCPLAZ 14:02
PROVIDERS: ATTEND Family Medicine
DX: E87.5 Hyperkalemia (principal)

== ENCOUNTER → 2020-07-11 | Outpatient (CLI) | payer BC, OTHER ==
--- NOTE | 2020-07-12 02:54 | REP ---
INDICATION: SPRAIN OF RIBS COMPARISON: None. TECHNIQUE: Frontal view of the chest with multiple (5) views of the left hemithorax. FINDINGS: Frontal view of the chest demonstrates no acute cardiopulmonary process, contusion, effusion, or pneumothorax. Multiple views of the left hemithorax suggests old injuries along the anterolateral margin of 6th and 8th ribs (confirmed on chest CT dated 02/03/2019). No evidence for acute fracture. IMPRESSION: No evidence for acute left rib fracture/injury. <Electronically signed by Jacob Solis > 07/12/20 0259
== END ==
LOC: M WUC 13:08
PROVIDERS: ATTEND Nurse Practitioner Family
DX: S23.41XA Sprain of ribs, initial encounter (principal); X58.XXXA Exposure to other specified factors, initial encounter; Y92.9 Unspecified place or not applicable

== ENCOUNTER → 2020-10-19 | Outpatient (CLI) | payer BC, OTHER ==
[~2020-10-19] MED LIST changes: +ISOS1TAB35 PO; -ISOS30TA4 PO
[2020-10-19 15:51] LABS: ALBUMIN 3.8 GM/DL (3.2-5.2); ALT/SGPT 38 U/L (12-78); BILIRUBIN,TOTAL 0.2 MG/DL (0.2-1.0); BLOOD UREA NITROGEN 10 MG/DL (7-18); CALCIUM LEVEL 9.2 MG/DL (8.5-10.1); CARBON DIOXIDE LEVEL 25 MEQ/L (21-32); CHLORIDE LEVEL 107 MEQ/L (98-107); CHOLESTEROL LEVEL 207 MG/DL (<200); CHOLESTEROL RISK RATIO 2.009 (<5); CREATININE FOR GFR 0.85 MG/DL (0.70-1.30); GLOMERULAR FILTRATION RATE > 60.0 (>56); GLUCOSE, FASTING 111 MG/DL (70-100); HDL CHOLESTEROL 103 MG/DL (>40); LDL CHOLESTEROL 93 MG/DL (<100); NON-HDL-C 104 MG/DL; POTASSIUM SERUM 4.6 MEQ/L (3.5-5.1); SODIUM LEVEL 139 MEQ/L (136-145); TOTAL PROTEIN 6.5 GM/DL (6.4-8.2); TRIGLYCERIDES LEVEL 53 MG/DL (<150)
== END ==
LOC: M WUC 11:48
PROVIDERS: ATTEND Family Medicine
DX: E78.2 Mixed hyperlipidemia (principal); I10 Essential (primary) hypertension

== ENCOUNTER → 2021-04-10 | Outpatient (CLI) | payer BC, OTHER ==
[~2021-04-10] MED LIST changes: -DOXY100C PO; +DOXY100C3 PO
--- NOTE | 2021-04-10 23:06 | REP ---
INDICATION: NICOTINE DEPENDENCE COMPARISON: 03/11/2020, 02/03/2019 TECHNIQUE: Axial noncontrast images from the thoracic inlet to the upper abdomen using low-dose lung screening technique (LDCT). FINDINGS: Lung slater are well aerated with minimal chronic scarring noted. No acute consolidation, suspicious nodule or mass. No effusion. No pneumothorax. Tracheobronchial tree is patent. Stable atherosclerotic changes to the thoracic aorta and coronary arteries again noted. IMPRESSION: 1. Chronic stable changes. 2. Lung rads category 1. Management recommendations include annual low-dose CT surveillance. <Electronically signed by Jacob Solis > 04/10/21 [id number]
== END ==
LOC: M RAD 13:25
PROVIDERS: ATTEND Nurse Practitioner Family
DX: Z12.2 Encounter for screening for malignant neoplasm of respiratory organs (principal); F17.210 Nicotine dependence, cigarettes, uncomplicated

== ENCOUNTER → 2021-04-25 | Outpatient (CLI) | payer OTHER, BC ==
[2021-04-25 16:31] LABS: ALBUMIN 3.8 GM/DL (3.2-5.2); ALT/SGPT 43 U/L (12-78); BILIRUBIN,TOTAL 0.5 MG/DL (0.2-1.0); BLOOD UREA NITROGEN 8 MG/DL (7-18); CALCIUM LEVEL 9.7 MG/DL (8.5-10.1); CARBON DIOXIDE LEVEL 26 MEQ/L (21-32); CHLORIDE LEVEL 109 MEQ/L (98-107); CREATININE FOR GFR 0.74 MG/DL (0.70-1.30); GLOMERULAR FILTRATION RATE > 60.0 (>56); GLUCOSE, FASTING 85 MG/DL (70-100); POTASSIUM SERUM 4.6 MEQ/L (3.5-5.1); SODIUM LEVEL 141 MEQ/L (136-145)
[2021-04-25 17:06] LABS: HEMOGLOBIN A1c 5.4 %
== END ==
LOC: M WUC 14:16
PROVIDERS: ATTEND Family Medicine
DX: R73.01 Impaired fasting glucose (principal); I10 Essential (primary) hypertension; F10.10 Alcohol abuse, uncomplicated

== ENCOUNTER → 2021-05-17 | Outpatient (REF) | payer OTHER, BC | LOC: M SFHCPLAZ 17:04 | PROVIDERS: ATTEND Nurse Practitioner Adult Health | DX: R10.84 Generalized abdominal pain (principal) ==

== ENCOUNTER → 2021-05-18 | Outpatient (CLI) | payer BC, OTHER ==
--- NOTE | 2021-05-18 08:57 | REP ---
INDICATION: GENERALIZED ABDOMINAL PAIN. COMPARISON: 05/19/2014. TECHNIQUE: AP view abdomen and pelvis. FINDINGS: No significantly dilated bowel loops are seen, with no evidence of bowel obstruction. Multiple metallic clips and surgical sutures are seen in the right abdomen. Diffuse vascular calcifications are present. There are mild degenerative changes of the spine and hips. IMPRESSION: Normal bowel gas pattern. <Electronically signed by Gregory Brown > 05/18/21 0812
== END ==
LOC: M PLAIMG 08:12
PROVIDERS: ATTEND Nurse Practitioner Adult Health
DX: R10.84 Generalized abdominal pain (principal); Z98.890 Other specified postprocedural states

== ENCOUNTER → 2021-05-25 | Outpatient (CLI) | payer BC, OTHER ==
--- NOTE | 2021-05-26 05:47 | REP ---
INDICATION: PAIN COMPARISON: None. TECHNIQUE: AP, lateral, bilateral oblique, and coned-down views of the lumbar spine. FINDINGS: Relatively normal alignment and lordosis is appreciated. Early advanced degenerative changes at L4-5 and L5-S1 include endplate sclerosis, disc space narrowing, early osteophytosis and facet hypertrophy. Remainder of the examination demonstrates relatively normal appearing age-related changes. There is no evidence for acute fracture/compression injury. Atherosclerotic changes to the aorta noted. IMPRESSION: Advanced degenerative changes involving L5-S1, L4-5. <Electronically signed by Jacob Solis > 05/26/21 0506
--- NOTE | 2021-05-26 05:57 | REP ---
INDICATION: PAIN COMPARISON: 08/12/2018 TECHNIQUE: PA and lateral. FINDINGS: The mediastinum and cardiac silhouette are stable and within normal limits. The lung slater demonstrate chronic changes likely related to COPD/emphysematous disease. Blunting of the bilateral costophrenic angles represents a new finding as compared to prior examination and may represent chronic change versus small active pleural reactions. The skeletal structures are intact and normal. IMPRESSION: No focal consolidation. Presumed chronic changes although subtle acute bilateral pleural reactions cannot be excluded. <Electronically signed by Jacob Solis > 05/26/21 0554
--- NOTE | 2021-05-26 06:15 | REP ---
INDICATION: PAIN COMPARISON: None. TECHNIQUE: AP, lateral, and swimmers views. FINDINGS: Alignment and kyphosis is maintained. Vertebral bodies intact. No acute fracture / compression injury or subluxation. Age-related changes are appreciated without overt significant findings. Paravertebral soft tissues are normal. IMPRESSION: Normal age-appropriate thoracic spine series. <Electronically signed by Jacob Solis > 05/26/21 0611
== END ==
LOC: M WUC 14:23
PROVIDERS: ATTEND Physician Assistant
DX: M54.5 Low back pain (principal); R07.89 Other chest pain; R91.8 Other nonspecific abnormal finding of lung field; M51.37 Other intervertebral disc degeneration, lumbosacral region; M51.36 Other intervertebral disc degeneration, lumbar region

== ENCOUNTER → 2021-10-24 | Outpatient (CLI) | payer BC, OTHER ==
[2021-10-24 16:56] LABS: ALT/SGPT 71 U/L (12-78); BILIRUBIN,TOTAL 0.6 MG/DL (0.2-1.0); BLOOD UREA NITROGEN 7 MG/DL (7-18); CALCIUM LEVEL 9.8 MG/DL (8.5-10.1); CARBON DIOXIDE LEVEL 28 MEQ/L (21-32); CHLORIDE LEVEL 106 MEQ/L (98-107); CHOLESTEROL LEVEL 251 MG/DL (<200); CHOLESTEROL RISK RATIO 1.845 (<5); CREATININE FOR GFR 0.81 MG/DL (0.70-1.30); GLOMERULAR FILTRATION RATE > 60.0 (>56); GLUCOSE, FASTING 88 MG/DL (70-100); HDL CHOLESTEROL 136 MG/DL (>40); LDL CHOLESTEROL 100 MG/DL (<100); NON-HDL-C 115 MG/DL; POTASSIUM SERUM 4.6 MEQ/L (3.5-5.1); SODIUM LEVEL 140 MEQ/L (136-145); TOTAL PROTEIN 7.2 GM/DL (6.4-8.2); TRIGLYCERIDES LEVEL 73 MG/DL (<150)
== END ==
LOC: M WUC 14:06
PROVIDERS: ATTEND Family Medicine
DX: E78.2 Mixed hyperlipidemia (principal); F10.10 Alcohol abuse, uncomplicated

== ENCOUNTER → 2022-04-17 | Outpatient (CLI) | payer BC, OTHER | LOC: M RAD 07:35 | PROVIDERS: ATTEND Internal Medicine Pulmonary Disease | DX: I70.0 Atherosclerosis of aorta (principal); I25.10 Atherosclerotic heart disease of native coronary artery without angina pectoris; F17.218 Nicotine dependence, cigarettes, with other nicotine-induced disorders ==

== ENCOUNTER 2022-07-28 13:01 | Emergency (ER) | payer BC, OTHER ==
[~2022-07-28] VITALS: Ht 180.3 cm; Wt 59.0 kg
[~2022-07-28 13:01] MED LIST changes: +CLOP75TA99 PO; -DOXY-350 PO; +DOXY-444 PO; -PLAV1TAB2 PO
[2022-07-28] MEDS ORDERED: BENA25CA4 PO (13:11)
[2022-07-28] MEDS ORDERED: BUDE10.7 (13:11)
[2022-07-28 13:25] VITALS: O2SAT 95
[2022-07-28] MEDS ORDERED: ACETAMINOPHEN 500 MG TAB PO ONE (13:30)
[2022-07-28] MEDS ORDERED: BENZONATATE 100MG CAPSULE PO ONE (13:40)
[2022-07-28] MEDS ORDERED: methylPREDNISolone 125MG 2ML VIAL IV ONE (13:40)
[2022-07-28] MEDS: COMBIVENT RESPIMAT 100-20MCG INHALER 4GM INH SCH ×3 (13:52→15:55)
[2022-07-28 14:04] LABS: BASO # 0.1 10^3/uL (0.0-0.2); BASO % 0.8 % (0.0-1.0); EOS # 0.1 10^3/uL (0.0-0.5); EOS % 1.4 % (0.0-3.0); HEMATOCRIT 44.9 % (42.0-52.0); HEMOGLOBIN 15.1 g/dl (13.5-17.5); LYMPH # 0.4 10^3/uL (1.5-5.0); LYMPH % 4.4 % (24.0-44.0); MEAN CORPUSCULAR HEMOGLOBIN 33.4 pg (27.0-33.0); MEAN CORPUSCULAR HGB CONC 33.6 g/dl (32.0-36.5); MEAN CORPUSCULAR VOLUME 99.3 fl (80.0-96.0); MONO % 11.2 % (2.0-8.0); NEUTROPHILS # 7.6 10^3/uL (1.5-8.5); NEUTROPHILS % 81.6 % (36.0-66.0); PLATELET COUNT, AUTOMATED 246 10^3/uL (150-450); RED BLOOD COUNT 4.52 10^6/uL (4.30-6.10); WHITE BLOOD COUNT 9.3 10^3/uL (4.0-10.0)
[2022-07-28 14:14] LABS: INR 0.86
[2022-07-28 14:15] LABS: PARTIAL THROMBOPLASTIN TIME 27.3 SECONDS (24.8-34.2)
[2022-07-28 14:31] LABS: ALBUMIN 4.4 G/DL (3.2-5.2); ALKALINE PHOSPHATASE 69 U/L (46-116); ALT/SGPT 28 U/L (7.0-40); AST/SGOT 32 U/L (<34); BILIRUBIN,TOTAL 0.4 MG/DL (0.3-1.2); BLOOD UREA NITROGEN 12 MG/DL (9-23); CALCIUM LEVEL 10.1 MG/DL (8.5-10.1); CARBON DIOXIDE LEVEL 23 MMOL/L (20-31); CHLORIDE LEVEL 105 MMOL/L (98-107); CK-MB VALUE MASS < 1.0 NG/ML (<3.6); CREATININE FOR GFR 0.97 MG/DL (0.70-1.30); GLOMERULAR FILTRATION RATE > 60.0 (>56); GLUCOSE, FASTING 93 MG/DL (60-100); POTASSIUM SERUM 4.9 MMOL/L (3.5-5.1); SODIUM LEVEL 137 MMOL/L (136-145); TOTAL PROTEIN 7.4 G/DL (5.7-8.2)
[2022-07-28 14:32] LABS: THYROID STIMULATING HORMONE 0.491 uIU/ML (0.55-4.78)
[2022-07-28 14:33] LABS: FREE T4 1.04 NG/DL (0.89-1.76)
[2022-07-28 14:36] LABS: CPK CREATINE PHOSPHOKINASE 58 U/L (46-171); MB/CK RELATIVE INDEX 1.72 (< OR =4)
[2022-07-28] MEDS ORDERED: ISOVUE-370 76% 100ML VIAL As Ordered ONE (14:39)
[2022-07-28] MEDS ORDERED: OSEL75CA PO (15:23)
[2022-07-28 15:29] LABS: CK-MB VALUE MASS < 1.0 NG/ML (<3.6)
[2022-07-28 15:31] LABS: CPK CREATINE PHOSPHOKINASE 49 U/L (46-171); MB/CK RELATIVE INDEX 2.04 (< OR =4)
[2022-07-28 16:31] VITALS: BP 122/63
== END 2022-07-28 16:38 | disposition home or self-care (01) ==
LOC: M ED 13:01
DX: J09.X2 Influenza due to identified novel influenza A virus with other respiratory manifestations (principal); J98.01 Acute bronchospasm; J06.9 Acute upper respiratory infection, unspecified; B34.9 Viral infection, unspecified; J45.909 Unspecified asthma, uncomplicated; M94.0 Chondrocostal junction syndrome [Tietze]; I25.10 Atherosclerotic heart disease of native coronary artery without angina pectoris; I10 Essential (primary) hypertension; J44.9 Chronic obstructive pulmonary disease, unspecified; K21.9 Gastro-esophageal reflux disease without esophagitis; Z98.61 Coronary angioplasty status; Z95.5 Presence of coronary angioplasty implant and graft; F17.200 Nicotine dependence, unspecified, uncomplicated; F10.10 Alcohol abuse, uncomplicated; Z87.820 Personal history of traumatic brain injury; E78.5 Hyperlipidemia, unspecified; Z87.440 Personal history of urinary (tract) infections; Z79.82 Long term (current) use of aspirin; Z79.899 Other long term (current) drug therapy; Z91.89 Other specified personal risk factors, not elsewhere classified
CPT/HCPCS: 71046; 71275; 80053; 82550; 82553; 83735; 83880; 84439; 84443; 84484; 85025; 85610; 85730; 87486; 87581; 87633; 87798; 93005; 93041; 94640; 94664; 94760; 96374; 99284; J2930

== ENCOUNTER → 2022-12-04 | Outpatient (CLI) | payer BC, OTHER ==
[~2022-12-04] MED LIST changes: +BENA25CA4 PO; +BUDE10.7; +OSEL75CA PO; +SIMV-254 PO; -ZOCO40TA PO
[2022-12-04 15:38] LABS: BASO # 0.2 10^3/uL (0.0-0.2); BASO % 1.3 % (0.0-1.0); EOS # 0.4 10^3/uL (0.0-0.5); EOS % 3.4 % (0.0-3.0); HEMATOCRIT 41.3 % (42.0-52.0); LYMPH # 1.6 10^3/uL (1.5-5.0); LYMPH % 13.4 % (24.0-44.0); MEAN CORPUSCULAR HEMOGLOBIN 33.6 pg (27.0-33.0); MEAN CORPUSCULAR HGB CONC 33.9 g/dl (32.0-36.5); MONO # 1.2 10^3/uL (0.0-0.8); MONO % 10.1 % (2.0-8.0); NEUTROPHILS # 8.3 10^3/uL (1.5-8.5); PLATELET COUNT, AUTOMATED 269 10^3/uL (150-450); RED BLOOD COUNT 4.17 10^6/uL (4.30-6.10); WHITE BLOOD COUNT 11.6 10^3/uL (4.0-10.0)
[2022-12-04 15:49] LABS: C REACTIVE PROTEIN QUANTITATIV < 0.40 MG/DL (<1.0)
[2022-12-04 15:50] LABS: ALBUMIN 4.1 G/DL (3.2-5.2); ALKALINE PHOSPHATASE 66 U/L (46-116); ALT/SGPT 25 U/L (7.0-40); AST/SGOT 27 U/L (<34); BILIRUBIN,TOTAL 0.6 MG/DL (0.3-1.2); BLOOD UREA NITROGEN 16 MG/DL (9-23); CALCIUM LEVEL 9.9 MG/DL (8.5-10.1); CARBON DIOXIDE LEVEL 25 MMOL/L (20-31); CHLORIDE LEVEL 108 MMOL/L (98-107); CHOLESTEROL LEVEL 179 MG/DL (<200); CHOLESTEROL RISK RATIO 1.91 (<5); GLOMERULAR FILTRATION RATE > 60.0 (>56); GLUCOSE, FASTING 89 MG/DL (60-100); HDL CHOLESTEROL 93.5 MG/DL (>40); LDL CHOLESTEROL 68.3 MG/DL (<100); NON-HDL-C 85.5 MG/DL; POTASSIUM SERUM 4.8 MMOL/L (3.5-5.1); SODIUM LEVEL 139 MMOL/L (136-145); TOTAL PROTEIN 6.8 G/DL (5.7-8.2); TRIGLYCERIDES LEVEL 86 MG/DL (<150)
[2022-12-04 15:51] LABS: FERRITIN 120.4 NG/ML (10.5-307.3)
[2022-12-04 15:52] LABS: THYROID STIMULATING HORMONE 1.101 uIU/ML (0.55-4.78)
[2022-12-04 16:24] LABS: HEPATITIS C VIRUS ABY INDEX < 0.0 INDEX (<0.8)
== END ==
LOC: M PLALAB 14:03
PROVIDERS: ATTEND Family Medicine
DX: Z00.00 Encounter for general adult medical examination without abnormal findings (principal); R61 Generalized hyperhidrosis; E78.2 Mixed hyperlipidemia

== ENCOUNTER 2023-05-28 08:42 | Day surgery (SDC) | payer BC, OTHER ==
[~2023-05-28] VITALS: Ht 180.3 cm; Wt 54.9 kg
[~2023-05-28 08:42] MED LIST changes: +AMLO2.5T3 PO; -BUDE10.7; +BUDE10.7 INH; +EZET10TA21 PO; +NS 1,000 ML IV ONE; -ROSU20TA5 PO; +ROSU20TA61 PO
[2023-05-28 10:40] VITALS: TEMP 99.3
[2023-05-28 10:58] VITALS: BP 112/58; O2SAT 98
[2023-05-28] MEDS ORDERED: MIDAZOLAM INJ 2MG/2ML VIAL As Ordered ONE (10:59)
== END 2023-05-28 11:05 | disposition home or self-care (01) ==
LOC: M OPP 08:42
PROVIDERS: ATTEND Internal Medicine Gastroenterology
DX: Z12.11 Encounter for screening for malignant neoplasm of colon (principal); Z86.010 Personal history of colon polyps; Z80.0 Family history of malignant neoplasm of digestive organs; K64.8 Other hemorrhoids; Z98.0 Intestinal bypass and anastomosis status; F17.200 Nicotine dependence, unspecified, uncomplicated; R07.9 Chest pain, unspecified; Z95.5 Presence of coronary angioplasty implant and graft; Z91.89 Other specified personal risk factors, not elsewhere classified; Z79.02 Long term (current) use of antithrombotics/antiplatelets; Z79.1 Long term (current) use of non-steroidal anti-inflammatories (NSAID); Z79.51 Long term (current) use of inhaled steroids; Z79.52 Long term (current) use of systemic steroids; Z79.899 Other long term (current) drug therapy; Z91.048 Other nonmedicinal substance allergy status
CPT/HCPCS: 45378; J2250

== ENCOUNTER → 2023-08-21 | Outpatient (CLI) | payer BC, OTHER ==
[~2023-08-21] MED LIST changes: -NS 1,000 ML IV ONE
== END ==
LOC: M RAD 15:43
PROVIDERS: ATTEND Internal Medicine Pulmonary Disease
DX: Z12.2 Encounter for screening for malignant neoplasm of respiratory organs (principal); F17.218 Nicotine dependence, cigarettes, with other nicotine-induced disorders; J43.9 Emphysema, unspecified; I70.0 Atherosclerosis of aorta; I25.10 Atherosclerotic heart disease of native coronary artery without angina pectoris; J47.9 Bronchiectasis, uncomplicated

== ENCOUNTER → 2024-04-22 | Outpatient (REF) | payer BC ==
[~2024-04-22] MED LIST changes: +DOXY-440 PO; -DOXY-444 PO; -ROSU40TA4 PO; +ROSU40TA81 PO
== END ==
LOC: M SFHCPLAZ 15:05
PROVIDERS: ATTEND Nurse Practitioner Family
DX: L98.9 Disorder of the skin and subcutaneous tissue, unspecified (principal); Z53.9 Procedure and treatment not carried out, unspecified reason

== ENCOUNTER → 2024-04-23 | Outpatient (CLI) | payer BC ==
[2024-04-23 14:27] LABS: BASO # 0.1 10^3/uL (0.0-0.2); BASO % 1.7 % (0.0-1.0); EOS # 0.5 10^3/uL (0.0-0.5); HEMATOCRIT 36.6 % (42.0-52.0); HEMOGLOBIN 12.6 g/dl (13.5-17.5); LYMPH # 1.5 10^3/uL (1.5-5.0); LYMPH % 25.9 % (24.0-44.0); MEAN CORPUSCULAR HEMOGLOBIN 33.3 pg (27.0-33.0); MEAN CORPUSCULAR HGB CONC 34.4 g/dl (32.0-36.5); MEAN CORPUSCULAR VOLUME 96.8 fl (80.0-96.0); MONO # 0.6 10^3/uL (0.0-0.8); MONO % 9.7 % (2.0-8.0); NEUTROPHILS % 52.7 % (36.0-66.0); PLATELET COUNT, AUTOMATED 278 10^3/uL (150-450); RED BLOOD COUNT 3.78 10^6/uL (4.30-6.10); WHITE BLOOD COUNT 5.8 10^3/uL (4.0-10.0)
[2024-04-23 14:42] LABS: C REACTIVE PROTEIN QUANTITATIV < 0.40 MG/DL (<1.0); ERYTHROCYTE SEDIMENTATION RATE 4 mm/hr (0-20)
[2024-04-23 14:43] LABS: THYROXINE (T4) 4.5 UG/DL (4.5-10.9)
[2024-04-23 14:44] LABS: ALBUMIN 3.9 G/DL (3.2-5.2); ALKALINE PHOSPHATASE 59 U/L (46-116); ALT/SGPT 18 U/L (7.0-40); AST/SGOT 21 U/L (<34); BILIRUBIN,TOTAL 0.3 MG/DL (0.3-1.2); BLOOD UREA NITROGEN 12 MG/DL (9-23); CALCIUM LEVEL 9.8 MG/DL (8.3-10.6); CARBON DIOXIDE LEVEL 27 MMOL/L (20-31); CHLORIDE LEVEL 113 MMOL/L (98-107); CREATININE FOR GFR 0.95 MG/DL (0.70-1.30); GLOMERULAR FILTRATION RATE > 60.0 (>49); GLUCOSE, FASTING 82 MG/DL (74-106); POTASSIUM SERUM 4.9 MMOL/L (3.5-5.1); SODIUM LEVEL 143 MMOL/L (136-145); THYROID STIMULATING HORMONE 1.103 uIU/ML (0.55-4.78); TOTAL PROTEIN 6.9 G/DL (5.7-8.2)
[2024-04-23 14:48] LABS: FREE THYROXINE INDEX 1.5 % (1.4-3.8)
[2024-04-23 14:55] LABS: HEPATITIS B SURFACE ANTIGEN NEGATIVE (NEGATIVE)
[2024-04-23 15:08] LABS: HIV 1&2 SCREEN NEGATIVE (NEGATIVE)
[2024-04-23 15:16] LABS: HEPATITIS C VIRUS ABY INDEX < 0.02 INDEX (<0.8)
[2024-04-23 15:17] LABS: HEPATITIS B CORE ANTIBODY IGM NEGATIVE (NEGATIVE)
[2024-04-24 15:48] LABS: ANA SCREEN, IFA NEGATIVE (NEGATIVE)
[2024-04-28 14:42] LABS: QuantiFERON-TB Gold Plus NEGATIVE (NEGATIVE)
== END ==
LOC: M LAB 12:51
PROVIDERS: ATTEND Nurse Practitioner Family
DX: L98.9 Disorder of the skin and subcutaneous tissue, unspecified (principal)

== ENCOUNTER → 2024-06-05 | Outpatient (CLI) | payer BC ==
[~2024-06-05] MED LIST changes: +ISOVUE-370 76% 100ML VIAL ONE; -ROSU20TA61 PO; +ROSU20TA86 PO
== END ==
LOC: M PLAIMG 10:07
PROVIDERS: ATTEND Internal Medicine Hematology & Oncology
DX: R79.1 Abnormal coagulation profile (principal); R91.8 Other nonspecific abnormal finding of lung field
CPT/HCPCS: 71275; Q9967

== ENCOUNTER → 2024-06-26 | Outpatient (CLI) | payer BC ==
[~2024-06-26] MED LIST changes: -ISOVUE-370 76% 100ML VIAL ONE
== END ==
LOC: M RAD 11:10
PROVIDERS: ATTEND Internal Medicine Hematology & Oncology
DX: R79.1 Abnormal coagulation profile (principal)

== ENCOUNTER → 2024-07-30 | Outpatient (CLI) | payer BC ==
[~2024-07-30] MED LIST changes: -ADV250INH INH; +ADVA1AER9 INH
== END ==
LOC: M LAB 13:21
PROVIDERS: ATTEND Nurse Practitioner Family
DX: L30.8 Other specified dermatitis (principal)

== ENCOUNTER → 2024-08-12 | Outpatient (CLI) | payer BC ==
[2024-08-12 15:09] LABS: BASO % 0.4 % (0.0-1.0); HEMATOCRIT 38.9 % (42.0-52.0); HEMOGLOBIN 13.5 g/dl (13.5-17.5); LYMPH # 0.6 10^3/uL (1.5-5.0); LYMPH % 5.6 % (24.0-44.0); MEAN CORPUSCULAR HEMOGLOBIN 33.2 pg (27.0-33.0); MEAN CORPUSCULAR HGB CONC 34.7 g/dl (32.0-36.5); MEAN CORPUSCULAR VOLUME 95.6 fl (80.0-96.0); MONO # 0.4 10^3/uL (0.0-0.8); MONO % 3.8 % (2.0-8.0); NEUTROPHILS # 10.1 10^3/uL (1.5-8.5); PLATELET COUNT, AUTOMATED 316 10^3/uL (150-450); RED BLOOD COUNT 4.07 10^6/uL (4.30-6.10); WHITE BLOOD COUNT 11.3 10^3/uL (4.0-10.0)
[2024-08-12 15:35] LABS: ALBUMIN 3.6 G/DL (3.2-5.2); ALKALINE PHOSPHATASE 56 U/L (40-129); ALT/SGPT 18 U/L (7.0-40); AST/SGOT 20 U/L (<34); BILIRUBIN,TOTAL 0.4 MG/DL (0.3-1.2); BLOOD UREA NITROGEN 23 MG/DL (9-23); CALCIUM LEVEL 10.1 MG/DL (8.3-10.6); CARBON DIOXIDE LEVEL 27 MMOL/L (20-31); CHLORIDE LEVEL 108 MMOL/L (98-107); CHOLESTEROL LEVEL 213 MG/DL (<200); CHOLESTEROL RISK RATIO 1.83 (<5); CREATININE FOR GFR 0.87 MG/DL (0.70-1.30); GLOMERULAR FILTRATION RATE > 60.0 (>49); GLUCOSE, FASTING 109 MG/DL (74-106); HDL CHOLESTEROL 115.8 MG/DL (>40); LDL CHOLESTEROL 84.4 MG/DL (<100); NON-HDL-C 97.2 MG/DL; POTASSIUM SERUM 5.5 MMOL/L (3.5-5.1); SODIUM LEVEL 137 MMOL/L (136-145); TOTAL PROTEIN 7.2 G/DL (5.7-8.2); TRIGLYCERIDES LEVEL 64 MG/DL (<150)
== END ==
LOC: M LAB 14:33
PROVIDERS: ATTEND Internal Medicine Cardiovascular Disease
DX: I25.10 Atherosclerotic heart disease of native coronary artery without angina pectoris (principal)

== ENCOUNTER → 2024-08-24 | Outpatient (CLI) | payer BC | LOC: M PLARAD 07:30 | PROVIDERS: ATTEND Internal Medicine Pulmonary Disease | DX: R91.1 Solitary pulmonary nodule (principal) | CPT/HCPCS: 78815; A9552 ==

== ENCOUNTER 2024-08-26 10:01 | Emergency (ER) | payer BC ==
[~2024-08-26] VITALS: Ht 180.3 cm; Wt 59.6 kg
[2024-08-26 10:04] VITALS: TEMP 96.4
[2024-08-26] MEDS ORDERED: ISOVUE-370 76% 100ML VIAL As Ordered ONE (11:46)
[2024-08-26 11:54] LABS: BASO # 0.1 10^3/uL (0.0-0.2); BASO % 0.8 % (0.0-1.0); EOS # 0.3 10^3/uL (0.0-0.5); HEMATOCRIT 38.6 % (42.0-52.0); HEMOGLOBIN 13.4 g/dl (13.5-17.5); LYMPH # 1.4 10^3/uL (1.5-5.0); LYMPH % 11.9 % (24.0-44.0); MEAN CORPUSCULAR HEMOGLOBIN 33.9 pg (27.0-33.0); MEAN CORPUSCULAR HGB CONC 34.7 g/dl (32.0-36.5); MEAN CORPUSCULAR VOLUME 97.7 fl (80.0-96.0); MONO # 1.1 10^3/uL (0.0-0.8); MONO % 9.8 % (2.0-8.0); NEUTROPHILS # 8.5 10^3/uL (1.5-8.5); NEUTROPHILS % 73.7 % (36.0-66.0); PLATELET COUNT, AUTOMATED 289 10^3/uL (150-450); RED BLOOD COUNT 3.95 10^6/uL (4.30-6.10); WHITE BLOOD COUNT 11.5 10^3/uL (4.0-10.0)
[2024-08-26] MEDS: ONDANSETRON 4MG 2ML VIAL IV ONE (12:01)
[2024-08-26] MEDS: NS (Normal Saline) 0.9% 1,000 ML IV ONE (12:01)
[2024-08-26] MEDS: MORPHINE 4 MG/ML 1ML VIAL IV ONE ×2 (12:02→12:48)
[2024-08-26 12:05] LABS: KETONE, URINE AUTO RFX NEGATIVE (NEGATIVE); LEUKOCYTE ESTERASE UR AUTO RFX NEGATIVE (NEGATIVE); MUCUS, URINE RFX SMALL (NEGATIVE); NITRITE, URINE AUTO RFX NEGATIVE (NEGATIVE)
[2024-08-26 12:16] LABS: LIPASE 49 U/L (12-53)
[2024-08-26 12:19] LABS: ALBUMIN 3.4 G/DL (3.2-5.2); ALKALINE PHOSPHATASE 77 U/L (40-129); ALT/SGPT 14 U/L (7.0-40); AST/SGOT 17 U/L (<34); BILIRUBIN,DIRECT < 0.1 MG/DL (<0.4); BILIRUBIN,TOTAL 0.3 MG/DL (0.3-1.2); BLOOD UREA NITROGEN 22 MG/DL (9-23); CALCIUM LEVEL 9.6 MG/DL (8.3-10.6); CARBON DIOXIDE LEVEL 26 MMOL/L (20-31); CHLORIDE LEVEL 108 MMOL/L (98-107); CK-MB VALUE MASS < 1.0 NG/ML (<3.6); CREATININE FOR GFR 0.77 MG/DL (0.70-1.30); GLOMERULAR FILTRATION RATE > 60.0 (>49); GLUCOSE, FASTING 101 MG/DL (74-106); POTASSIUM SERUM 4.6 MMOL/L (3.5-5.1); SODIUM LEVEL 139 MMOL/L (136-145); TOTAL PROTEIN 6.9 G/DL (5.7-8.2)
[2024-08-26 12:25] LABS: CPK CREATINE PHOSPHOKINASE 68 U/L (46-171); MB/CK RELATIVE INDEX 1.47 (< OR =4)
[2024-08-26] MEDS: LIDOCAINE 5% (LIDODERM) PATCH TD ONE (12:47)
[2024-08-26] MEDS: CYCLOBENZAPRINE 10MG TABLET PO ONE (12:55)
[2024-08-26 14:01] LABS: CK-MB VALUE MASS < 1.0 NG/ML (<3.6); CPK CREATINE PHOSPHOKINASE 74 U/L (46-171); MB/CK RELATIVE INDEX 1.35 (< OR =4)
[2024-08-26 15:00] VITALS: BP 144/63
[2024-08-26 15:01] VITALS: O2SAT 94
[2024-08-26] MEDS ORDERED: LIDO5DIS41 TOP (15:11)
== END 2024-08-26 15:25 | disposition home or self-care (01) ==
LOC: M ED 10:01
DX: S39.012A Strain of muscle, fascia and tendon of lower back, initial encounter (principal); R31.29 Other microscopic hematuria; R79.9 Abnormal finding of blood chemistry, unspecified; R93.5 Abnormal findings on diagnostic imaging of other abdominal regions, including retroperitoneum; Z79.82 Long term (current) use of aspirin; Z79.899 Other long term (current) drug therapy; Z91.89 Other specified personal risk factors, not elsewhere classified
CPT/HCPCS: 36415; 71275; 74177; 80048; 80076; 81001; 82550; 82553; 83690; 84484; 85025; 93005; 93041; 94760; 96361; 96374; 96375; 96376; 99285; J2405; Q9967

== ENCOUNTER → 2024-08-31 | Outpatient (CLI) | payer BC ==
[~2024-08-31] MED LIST changes: +LIDO5DIS41 TOP
[2024-08-31 16:24] LABS: BASO # 0.1 10^3/uL (0.0-0.2); BASO % 1.1 % (0.0-1.0); EOS # 0.2 10^3/uL (0.0-0.5); EOS % 2.5 % (0.0-3.0); HEMATOCRIT 39.4 % (42.0-52.0); HEMOGLOBIN 13.4 g/dl (13.5-17.5); LYMPH # 1.5 10^3/uL (1.5-5.0); LYMPH % 16.9 % (24.0-44.0); MEAN CORPUSCULAR HEMOGLOBIN 32.8 pg (27.0-33.0); MEAN CORPUSCULAR VOLUME 96.6 fl (80.0-96.0); MONO # 0.9 10^3/uL (0.0-0.8); NEUTROPHILS # 6.1 10^3/uL (1.5-8.5); NEUTROPHILS % 68.6 % (36.0-66.0); PLATELET COUNT, AUTOMATED 325 10^3/uL (150-450); RED BLOOD COUNT 4.08 10^6/uL (4.30-6.10); WHITE BLOOD COUNT 8.9 10^3/uL (4.0-10.0)
[2024-08-31 16:36] LABS: C REACTIVE PROTEIN QUANTITATIV 0.62 MG/DL (<1.0)
[2024-08-31 16:39] LABS: BLOOD UREA NITROGEN 16 MG/DL (9-23); CALCIUM LEVEL 10.7 MG/DL (8.3-10.6); CARBON DIOXIDE LEVEL 28 MMOL/L (20-31); CHLORIDE LEVEL 107 MMOL/L (98-107); CREATININE FOR GFR 0.83 MG/DL (0.70-1.30); GLOMERULAR FILTRATION RATE > 60.0 (>49); GLUCOSE, FASTING 91 MG/DL (74-106); POTASSIUM SERUM 5.6 MMOL/L (3.5-5.1); SODIUM LEVEL 142 MMOL/L (136-145)
[2024-08-31 16:44] LABS: ERYTHROCYTE SEDIMENTATION RATE 38 mm/hr (0-20)
== END ==
LOC: M PLALAB 12:24
PROVIDERS: ATTEND Physician Assistant Medical
DX: D72.829 Elevated white blood cell count, unspecified (principal); R10.9 Unspecified abdominal pain

== ENCOUNTER → 2024-09-08 | Outpatient (CLI) | payer BC ==
[~2024-09-08] MED LIST changes: +E-Z-GAS II EFFERVESCENT PACKET (SODIUM BICARB./CITRIC ACID/SIMETHICONE) As Ordered ONE; +E-Z-HD 98% w/w 340GM SUSP BTL As Ordered ONE; +E-Z-PAQUE 96% w/w SUSP 176GM BTL As Ordered ONE
== END ==
LOC: M RAD 07:34
PROVIDERS: ATTEND Family Medicine
DX: K31.89 Other diseases of stomach and duodenum (principal); K44.9 Diaphragmatic hernia without obstruction or gangrene; K21.9 Gastro-esophageal reflux disease without esophagitis

== ENCOUNTER → 2024-10-19 | Outpatient (CLI) | payer BC ==
[~2024-10-19] MED LIST changes: -E-Z-GAS II EFFERVESCENT PACKET (SODIUM BICARB./CITRIC ACID/SIMETHICONE) As Ordered ONE; -E-Z-HD 98% w/w 340GM SUSP BTL As Ordered ONE; -E-Z-PAQUE 96% w/w SUSP 176GM BTL As Ordered ONE
[2024-10-19 13:07] LABS: BASO # 0.1 10^3/uL (0.0-0.2); BASO % 1.2 % (0.0-1.0); EOS # 0.2 10^3/uL (0.0-0.5); EOS % 2.7 % (0.0-3.0); HEMATOCRIT 36.5 % (42.0-52.0); HEMOGLOBIN 12.6 g/dl (13.5-17.5); LYMPH # 1.2 10^3/uL (1.5-5.0); LYMPH % 15.5 % (24.0-44.0); MEAN CORPUSCULAR HEMOGLOBIN 33.4 pg (27.0-33.0); MEAN CORPUSCULAR HGB CONC 34.5 g/dl (32.0-36.5); MEAN CORPUSCULAR VOLUME 96.8 fl (80.0-96.0); MONO # 0.8 10^3/uL (0.0-0.8); MONO % 10.6 % (2.0-8.0); NEUTROPHILS # 5.2 10^3/uL (1.5-8.5); NEUTROPHILS % 69.3 % (36.0-66.0); PLATELET COUNT, AUTOMATED 267 10^3/uL (150-450); RED BLOOD COUNT 3.77 10^6/uL (4.30-6.10); WHITE BLOOD COUNT 7.4 10^3/uL (4.0-10.0)
[2024-10-19 13:34] LABS: ALBUMIN 3.9 G/DL (3.2-5.2); ALKALINE PHOSPHATASE 62 U/L (40-129); ALT/SGPT 19 U/L (7.0-40); AST/SGOT 32 U/L (<34); BILIRUBIN,TOTAL 0.4 MG/DL (0.3-1.2); BLOOD UREA NITROGEN 15 MG/DL (9-23); CALCIUM LEVEL 9.3 MG/DL (8.3-10.6); CARBON DIOXIDE LEVEL 25 MMOL/L (20-31); CHLORIDE LEVEL 106 MMOL/L (98-107); CREATININE FOR GFR 0.99 MG/DL (0.70-1.30); GLOMERULAR FILTRATION RATE > 60.0 (>49); GLUCOSE, FASTING 90 MG/DL (74-106); SODIUM LEVEL 139 MMOL/L (136-145); TOTAL PROTEIN 6.9 G/DL (5.7-8.2)
== END ==
LOC: M LAB 12:34
PROVIDERS: ATTEND Internal Medicine Hematology & Oncology
DX: R79.1 Abnormal coagulation profile (principal)

== ENCOUNTER 2024-11-25 08:44 | Day surgery (SDC) | payer BC ==
[~2024-11-25] VITALS: Ht 180.3 cm; Wt 59.9 kg
[~2024-11-25 08:44] MED LIST changes: +LIDOCAINE 2% 100MG/5ML SDV (FOR ANES.) As Ordered ONE; +fentaNYL 100 MCG/2 ML INJECTION As Ordered ONE; +propofoL 200 MG/20 ML VIAL As Ordered ONE
[2024-11-25] MEDS ORDERED: IPRATROPIUM 0.5MG/ALBUTEROL 2.5MG INH SOL UD 3ML (DUONEB) NEB ONE (09:05)
[2024-11-25] MEDS ORDERED: IPRATROPIUM 0.5MG/ALBUTEROL 2.5MG INH SOL UD 3ML (DUONEB) As Ordered ONE (09:15)
[2024-11-25 10:01] VITALS: TEMP 97.3
[2024-11-25 10:17] VITALS: BP 149/73; O2SAT 97
== END 2024-11-25 10:18 | disposition home or self-care (01) ==
LOC: M OPP 08:44
PROVIDERS: ATTEND Surgery
DX: C49.A0 Gastrointestinal stromal tumor, unspecified site (principal); R10.13 Epigastric pain; R93.3 Abnormal findings on diagnostic imaging of other parts of digestive tract; Z95.5 Presence of coronary angioplasty implant and graft; Z79.51 Long term (current) use of inhaled steroids; Z79.899 Other long term (current) drug therapy; J43.9 Emphysema, unspecified; F17.210 Nicotine dependence, cigarettes, uncomplicated
CPT/HCPCS: 43239; 88305; J3010

== ENCOUNTER → 2024-12-03 | Outpatient (CLI) | payer BC ==
[~2024-12-03] MED LIST changes: -LIDOCAINE 2% 100MG/5ML SDV (FOR ANES.) As Ordered ONE; -fentaNYL 100 MCG/2 ML INJECTION As Ordered ONE; -propofoL 200 MG/20 ML VIAL As Ordered ONE
[2024-12-03 14:22] LABS: BASO # 0.1 10^3/uL (0.0-0.2); BASO % 1.1 % (0.0-1.0); EOS # 0.3 10^3/uL (0.0-0.5); EOS % 3.6 % (0.0-3.0); HEMATOCRIT 38.1 % (42.0-52.0); HEMOGLOBIN 13.1 g/dl (13.5-17.5); LYMPH # 1.6 10^3/uL (1.5-5.0); LYMPH % 19.8 % (24.0-44.0); MEAN CORPUSCULAR HEMOGLOBIN 33.4 pg (27.0-33.0); MEAN CORPUSCULAR HGB CONC 34.4 g/dl (32.0-36.5); MEAN CORPUSCULAR VOLUME 97.2 fl (80.0-96.0); MONO % 11.5 % (2.0-8.0); NEUTROPHILS # 5.2 10^3/uL (1.5-8.5); PLATELET COUNT, AUTOMATED 273 10^3/uL (150-450); RED BLOOD COUNT 3.92 10^6/uL (4.30-6.10); WHITE BLOOD COUNT 8.3 10^3/uL (4.0-10.0)
[2024-12-03 14:45] LABS: ALBUMIN 3.8 G/DL (3.2-5.2); ALKALINE PHOSPHATASE 56 U/L (40-129); ALT/SGPT 21 U/L (7.0-40); AST/SGOT 19 U/L (<34); BILIRUBIN,TOTAL 0.4 MG/DL (0.3-1.2); BLOOD UREA NITROGEN 15 MG/DL (9-23); CALCIUM LEVEL 9.8 MG/DL (8.3-10.6); CARBON DIOXIDE LEVEL 29 MMOL/L (20-31); CHLORIDE LEVEL 107 MMOL/L (98-107); CREATININE FOR GFR 0.91 MG/DL (0.70-1.30); GLOMERULAR FILTRATION RATE > 90.0 (>49); GLUCOSE, FASTING 91 MG/DL (74-106); POTASSIUM SERUM 5.2 MMOL/L (3.5-5.1); SODIUM LEVEL 143 MMOL/L (136-145); TOTAL PROTEIN 6.9 G/DL (5.7-8.2)
[2024-12-04 10:23] LABS: T P ELECTROPHORESIS SO 6.9 g/dL (6.1-8.1)
== END ==
LOC: M LAB 13:41
PROVIDERS: ATTEND Specialist
DX: D47.2 Monoclonal gammopathy (principal); R79.89 Other specified abnormal findings of blood chemistry

== ENCOUNTER 2025-02-22 15:02 | Emergency (ER) | payer BC ==
[~2025-02-22] VITALS: Ht 180.3 cm; Wt 56.3 kg
[~2025-02-22 15:02] MED LIST changes: +ALB2.5NEB NEB; +AMOX875T2; +ATIV1TAB10; +BENZ200C70 PO; +BREAMIS10 MC; +BUPR150T15 PO; -BUPR1TAB53 PO; +CETI-24 PO; +DIVA-41 PO; -DIVA500T94 PO; +ESOM40CA35; +LIDO1ADH93 TOP; -LIDO5DIS41 TOP; +NYST-38 PO; +PERI12LIQ; +STIO1AER PO; +[UNRECOGNIZED DRUG - CODE] SQ
[2025-02-22] MEDS: IPRATROPIUM 0.5 MG/ALBUTEROL 2.5 MG INH SOL UD 3 ML NEB PRN (16:16)
[2025-02-22 16:29] LABS: BASO # 0.2 10^3/uL (0.0-0.2); BASO % 1.6 % (0.0-1.0); EOS # 0.9 10^3/uL (0.0-0.5); EOS % 6.8 % (0.0-3.0); LYMPH # 1.1 10^3/uL (1.5-5.0); LYMPH % 8.6 % (24.0-44.0); MONO # 1.0 10^3/uL (0.0-0.8); MONO % 8.1 % (2.0-8.0); NEUTROPHILS # 9.5 10^3/uL (1.5-8.5); NEUTROPHILS % 74.1 % (36.0-66.0); PLATELET COUNT, AUTOMATED 594 10^3/uL (150-450)
[2025-02-22 16:48] LABS: CARBON DIOXIDE LEVEL 23 MMOL/L (20-31); CHLORIDE LEVEL 101 MMOL/L (98-107); CREATININE FOR GFR 0.64 MG/DL (0.70-1.30); GLOMERULAR FILTRATION RATE > 90.0 (>49); POTASSIUM SERUM 5.5 MMOL/L (3.5-5.1); SODIUM LEVEL 137 MMOL/L (136-145)
[2025-02-22 17:04] LABS: CALCIUM LEVEL 10.1 MG/DL (8.3-10.6)
[2025-02-22] MEDS ORDERED: ISOVUE-370 76% 100 ML VIAL As Ordered ONE (17:50)
[2025-02-22] MEDS: ASPIRIN 81 MG CHEWABLE TABLET PO ONE (21:45)
[2025-02-22] MEDS: ATORVASTATIN 20 MG TAB PO ONE (21:46)
[2025-02-22] MEDS: IPRATROPIUM 0.5 MG/ALBUTEROL 2.5 MG INH SOL UD 3 ML NEB ONE (21:54)
[2025-02-23] MEDS ORDERED: HEPARIN SOD 5000 UNITS/ML 1 ML VIAL/SYRINGE IV PRN (01:00)
[2025-02-23] MEDS: HEPARIN DRIP 25,000 UNITS in IV 1 EA IV SCH (01:45)
[2025-02-23] MEDS: HEPARIN SOD 5000 UNITS/ML 1 ML VIAL/SYRINGE IV ONE (01:46)
[2025-02-23] MEDS: IPRATROPIUM 0.5 MG/ALBUTEROL 2.5 MG INH SOL UD 3 ML NEB ONE (06:11)
[2025-02-23 06:30] VITALS: BP 134/78; O2SAT 99
[2025-02-23 06:34] VITALS: TEMP 98.3
== END 2025-02-23 06:38 | disposition short-term general hospital (02) ==
LOC: M ED 15:02
DX: I21.4 Non-ST elevation (NSTEMI) myocardial infarction (principal); J44.1 Chronic obstructive pulmonary disease with (acute) exacerbation; I25.10 Atherosclerotic heart disease of native coronary artery without angina pectoris; I25.2 Old myocardial infarction; I10 Essential (primary) hypertension; J45.909 Unspecified asthma, uncomplicated; E78.5 Hyperlipidemia, unspecified; K21.9 Gastro-esophageal reflux disease without esophagitis; Z95.5 Presence of coronary angioplasty implant and graft; F17.200 Nicotine dependence, unspecified, uncomplicated; Z79.82 Long term (current) use of aspirin; Z79.899 Other long term (current) drug therapy; Z88.8 Allergy status to other drugs, medicaments and biological substances
CPT/HCPCS: 71045; 71275; 80048; 83605; 84484; 85025; 85730; 87040; 87486; 87581; 87633; 87798; 93005; 93041; 94640; 94760; 96374; 96375; 99285; J1100; Q9967

== ENCOUNTER 2025-03-07 07:42 | Emergency (ER) | payer BC, OTHER ==
[~2025-03-07] VITALS: Ht 180.3 cm; Wt 56.8 kg
[2025-03-07 08:09] LABS: BASO # 0.2 10^3/uL (0.0-0.2); BASO % 1.4 % (0.0-1.0); EOS # 2.5 10^3/uL (0.0-0.5); LYMPH # 1.6 10^3/uL (1.5-5.0); LYMPH % 14.5 % (24.0-44.0); MONO # 0.9 10^3/uL (0.0-0.8); MONO % 8.4 % (2.0-8.0); NEUTROPHILS # 5.9 10^3/uL (1.5-8.5); NEUTROPHILS % 53.0 % (36.0-66.0); PLATELET COUNT, AUTOMATED 302 10^3/uL (150-450)
[2025-03-07 08:24] LABS: VENOUS BASE EXCESS -3.5 (-2.0-2.0); VENOUS HCO3 20.7 MMOL/L (23.0-27.0); VENOUS O2 SATURATION 97.9 % (60.0-80.0); VENOUS PARTIAL PRESSURE CO2 34.9 mmHg (38.0-50.0); VENOUS PARTIAL PRESSURE O2 115.1 mmHg (30.0-50.0); VENOUS PH 7.392 UNITS (7.330-7.430); VENOUS STANDARD HCO3 21.6 MMOL/L; VENOUS TOTAL CO2 21.8 MMOL/L (24.0-28.0)
[2025-03-07 08:34] LABS: EOS % 22.2 % (0.0-3.0)
[2025-03-07] MEDS ORDERED: DILT30TA (08:43)
[2025-03-07] MEDS ORDERED: ISOVUE-370 76% 100 ML VIAL As Ordered ONE (08:43)
[2025-03-07 08:56] LABS: CK-MB VALUE MASS 1.9 NG/ML (<3.6)
[2025-03-07 08:58] LABS: CPK CREATINE PHOSPHOKINASE 90.0 U/L (46-171); MB/CK RELATIVE INDEX 2.11 (< OR =4)
[2025-03-07 09:00] LABS: FREE T4 1.1 NG/DL (0.89-1.76)
[2025-03-07] MEDS: IPRATROPIUM 0.5 MG/ALBUTEROL 2.5 MG INH SOL UD 3 ML NEB ONE (09:02)
[2025-03-07] MEDS: ALBUTEROL SULFATE 2.5 MG/0.5 ML INH CONCENTRATE NEB SOLN INH ONE (09:02)
[2025-03-07 10:01] LABS: ALT/SGPT 14 U/L (7.0-40); AST/SGOT 21 U/L (<34); CALCIUM LEVEL 8.9 MG/DL (8.3-10.6); CARBON DIOXIDE LEVEL 26 MMOL/L (20-31); CHLORIDE LEVEL 103 MMOL/L (98-107); CREATININE FOR GFR 0.92 MG/DL (0.70-1.30); GLOMERULAR FILTRATION RATE > 90.0 (>49); POTASSIUM SERUM 4.4 MMOL/L (3.5-5.1); SODIUM LEVEL 139 MMOL/L (136-145)
[2025-03-07 10:43] LABS: CK-MB VALUE MASS 2.6 NG/ML (<3.6)
[2025-03-07 10:44] LABS: CPK CREATINE PHOSPHOKINASE 97.0 U/L (46-171); MB/CK RELATIVE INDEX 2.68 (< OR =4)
[2025-03-07] MEDS ORDERED: CARA1TAB6 PO (12:32)
[2025-03-07] MEDS ORDERED: VENTAER INH (12:32)
[2025-03-07 12:50] VITALS: BP 162/89; TEMP 98.6; O2SAT 94
== END 2025-03-07 12:57 | disposition home or self-care (01) ==
LOC: M ED 07:42
DX: R06.00 Dyspnea, unspecified (principal); K20.90 Esophagitis, unspecified without bleeding; I10 Essential (primary) hypertension; E78.5 Hyperlipidemia, unspecified; F17.200 Nicotine dependence, unspecified, uncomplicated; Z91.048 Other nonmedicinal substance allergy status; Z88.8 Allergy status to other drugs, medicaments and biological substances; Z79.899 Other long term (current) drug therapy; Z79.82 Long term (current) use of aspirin
CPT/HCPCS: 71045; 71275; 74177; 76705; 80047; 80048; 80076; 82550; 82553; 82803; 83690; 83880; 84439; 84443; 84484; 85025; 87486; 87581; 87633; 87798; 93005; 93041; 94640; 94760; 96374; 99285; J2919; Q9967

== ENCOUNTER 2025-03-12 03:45 | Emergency (ER) | payer BC ==
[~2025-03-12] VITALS: Ht 180.3 cm; Wt 55.0 kg
[~2025-03-12 03:45] MED LIST changes: +CARA1TAB6 PO; +DILT30TA
[2025-03-12] MEDS: IPRATROPIUM 0.5 MG/ALBUTEROL 2.5 MG INH SOL UD 3 ML NEB STA (04:09)
[2025-03-12 04:43] LABS: VENOUS BASE EXCESS -2.2 (-2.0-2.0); VENOUS HCO3 23.3 MMOL/L (23.0-27.0); VENOUS O2 SATURATION 97.5 % (60.0-80.0); VENOUS PARTIAL PRESSURE CO2 42.7 mmHg (38.0-50.0); VENOUS PARTIAL PRESSURE O2 108.1 mmHg (30.0-50.0); VENOUS PH 7.355 UNITS (7.330-7.430); VENOUS STANDARD HCO3 22.7 MMOL/L; VENOUS TOTAL CO2 24.6 MMOL/L (24.0-28.0)
[2025-03-12 05:01] LABS: INR 0.96
[2025-03-12 05:04] LABS: PLATELET COUNT, AUTOMATED 309 10^3/uL (150-450)
[2025-03-12 05:09] LABS: ALT/SGPT 20 U/L (7.0-40); AST/SGOT 19 U/L (<34); CALCIUM LEVEL 9.4 MG/DL (8.3-10.6); CARBON DIOXIDE LEVEL 24 MMOL/L (20-31); CHLORIDE LEVEL 106 MMOL/L (98-107); CPK CREATINE PHOSPHOKINASE 51 U/L (46-171); CREATININE FOR GFR 0.73 MG/DL (0.70-1.30); GLOMERULAR FILTRATION RATE > 90.0 (>49); POTASSIUM SERUM 3.9 MMOL/L (3.5-5.1); SODIUM LEVEL 144 MMOL/L (136-145)
[2025-03-12 05:12] LABS: CK-MB VALUE MASS 2.0 NG/ML (<3.6); MB/CK RELATIVE INDEX 3.92 (< OR =4)
[2025-03-12] MEDS: NS (Normal Saline) 0.9% 1,000 ML IV ONE (06:20)
[2025-03-12 06:22] LABS: BASOPHILS 1 % (0-1); EOSINOPHILS 16 % (0-3); LYMPHOCYTES 22 % (16-44); MONOCYTES 6 % (0-5); NEUTROPHILS 55 % (28-66)
[2025-03-12 06:23] LABS: PLATELET ESTIMATE NORMAL (NORMAL)
[2025-03-12] MEDS: IPRATROPIUM 0.5 MG/ALBUTEROL 2.5 MG INH SOL UD 3 ML NEB ONE (06:25)
[2025-03-12] MEDS: HYDROMORPHONE HCL 0.5 MG/0.5 ML SYRINGE IV STA (08:03)
[2025-03-12 08:12] LABS: MAGNESIUM LEVEL 2.0 MG/DL (1.8-2.4)
[2025-03-12] MEDS ORDERED: SYMB16INH INH (09:58)
[2025-03-12] MEDS ORDERED: PRED20TA PO (09:58)
[2025-03-12] MEDS ORDERED: LEVO1TAB39 PO (09:58)
[2025-03-12] MEDS ORDERED: DILA1LIQ2 PO (09:58)
[2025-03-12] MEDS: FAMOTIDINE 20 MG/2 ML VIAL IVP ONE (10:25)
[2025-03-12] MEDS: PANTOPRAZOLE 40MG VIAL IV ONE (10:26)
[2025-03-12 11:00] VITALS: BP 158/82; TEMP 98.4; O2SAT 93
== END 2025-03-12 11:35 | disposition home or self-care (01) ==
LOC: M ED 03:45
DX: J44.9 Chronic obstructive pulmonary disease, unspecified (principal); J43.9 Emphysema, unspecified; I25.10 Atherosclerotic heart disease of native coronary artery without angina pectoris; Z87.891 Personal history of nicotine dependence; Z79.899 Other long term (current) drug therapy; Z91.89 Other specified personal risk factors, not elsewhere classified
CPT/HCPCS: 71045; 80048; 80076; 82550; 82553; 82803; 83605; 83735; 83880; 84484; 85025; 85610; 87486; 87581; 87633; 87798; 93005; 93041; 94760; 96374; 96375; 99285; J1171; J1308; J2470; J2919

== ENCOUNTER 2025-03-24 07:47 | Emergency (ER) | payer BC ==
[~2025-03-24] VITALS: Ht 180.3 cm; Wt 127.0 kg
[~2025-03-24 07:47] MED LIST changes: +DILA1LIQ2 PO; -DILT30TA; +DILT30TA PO; +LEVO1TAB39 PO; +SYMB16INH INH
[2025-03-24 08:26] LABS: VENOUS BASE EXCESS 1.2 (-2.0-2.0); VENOUS HCO3 27.1 MMOL/L (23.0-27.0); VENOUS O2 SATURATION 53.5 % (60.0-80.0); VENOUS PARTIAL PRESSURE CO2 48.0 mmHg (38.0-50.0); VENOUS PARTIAL PRESSURE O2 29.3 mmHg (30.0-50.0); VENOUS PH 7.370 UNITS (7.330-7.430); VENOUS STANDARD HCO3 24.4 MMOL/L; VENOUS TOTAL CO2 28.6 MMOL/L (24.0-28.0)
[2025-03-24 08:41] LABS: BASO # 0.1 10^3/uL (0.0-0.2); BASO % 0.8 % (0.0-1.0); EOS # 0.8 10^3/uL (0.0-0.5); EOS % 8.3 % (0.0-3.0); LYMPH # 1.2 10^3/uL (1.5-5.0); LYMPH % 12.5 % (24.0-44.0); MONO # 1.2 10^3/uL (0.0-0.8); MONO % 12.2 % (2.0-8.0); NEUTROPHILS # 6.5 10^3/uL (1.5-8.5); NEUTROPHILS % 65.7 % (36.0-66.0); PLATELET COUNT, AUTOMATED 395 10^3/uL (150-450)
[2025-03-24 08:55] LABS: CK-MB VALUE MASS 1.8 NG/ML (<3.6)
[2025-03-24 08:57] LABS: ALT/SGPT 20 U/L (7.0-40); AST/SGOT 20 U/L (<34); CALCIUM LEVEL 10.0 MG/DL (8.3-10.6); CARBON DIOXIDE LEVEL 27 MMOL/L (20-31); CHLORIDE LEVEL 102 MMOL/L (98-107); CPK CREATINE PHOSPHOKINASE 80 U/L (46-171); CREATININE FOR GFR 0.80 MG/DL (0.70-1.30); GLOMERULAR FILTRATION RATE > 90.0 (>49); MB/CK RELATIVE INDEX 2.25 (< OR =4); POTASSIUM SERUM 4.2 MMOL/L (3.5-5.1); SODIUM LEVEL 141 MMOL/L (136-145)
[2025-03-24 08:59] LABS: THYROXINE (T4) 10.0 UG/DL (4.5-10.9)
[2025-03-24 09:21] LABS: INR 0.98
[2025-03-24] MEDS ORDERED: TRAM50TA2 PO (10:12)
[2025-03-24] MEDS ORDERED: LEVO1TAB39 PO (10:12)
[2025-03-24] MEDS ORDERED: SYMB16INH INH (10:12)
[2025-03-24] MEDS ORDERED: SUCR1TA PO (10:12)
[2025-03-24] MEDS ORDERED: ALBU2.5V10 INH (10:12)
[2025-03-24] MEDS ORDERED: HOME MED LIST COMPLETE! XX SCH (10:15)
[2025-03-24] MEDS ORDERED: ISOVUE-370 76% 100 ML VIAL As Ordered ONE (10:37)
[2025-03-24 10:38] LABS: CK-MB VALUE MASS 1.7 NG/ML (<3.6); CPK CREATINE PHOSPHOKINASE 71.0 U/L (46-171); MB/CK RELATIVE INDEX 2.39 (< OR =4)
[2025-03-24] MEDS ORDERED: PRED20TA PO (11:39)
[2025-03-24 12:04] VITALS: BP 167/85; TEMP 97.6; O2SAT 96
== END 2025-03-24 12:06 | disposition home or self-care (01) ==
LOC: M ED 07:47
DX: J44.1 Chronic obstructive pulmonary disease with (acute) exacerbation (principal); I11.0 Hypertensive heart disease with heart failure; I25.2 Old myocardial infarction; N40.0 Benign prostatic hyperplasia without lower urinary tract symptoms; Z95.5 Presence of coronary angioplasty implant and graft; Z87.891 Personal history of nicotine dependence; Z86.79 Personal history of other diseases of the circulatory system; Z79.899 Other long term (current) drug therapy; Z88.8 Allergy status to other drugs, medicaments and biological substances; Z91.89 Other specified personal risk factors, not elsewhere classified
CPT/HCPCS: 71045; 71275; 80048; 80076; 82550; 82553; 82803; 83605; 83880; 84436; 84443; 84484; 85025; 85610; 87040; 87486; 87581; 87633; 87798; 93005; 93041; 94760; 99285; Q9967

== ENCOUNTER → 2025-05-04 | Outpatient (CLI) | payer BC ==
[~2025-05-04] MED LIST changes: +ALBU2.5V10 INH; +AMOX875T2 PO; +ESCITALOPRAM; +SUCR1TA PO; +TRAM50TA2 PO; +TRAZ-252
== END ==
LOC: M ONCM 13:12
PROVIDERS: ATTEND Dietitian, Registered
DX: C49.A9 Gastrointestinal stromal tumor of other sites (principal); Z71.3 Dietary counseling and surveillance; Z68.1 Body mass index [BMI] 19.9 or less, adult

== ENCOUNTER → 2025-05-13 | Outpatient (REF) | payer BC ==
[~2025-05-13] MED LIST changes: -EZET10TA21 PO; +EZET10TA57 PO
== END ==
LOC: M SFHCPLAZ 10:04
PROVIDERS: ATTEND Family Medicine
DX: R05.1 Acute cough (principal)

== ENCOUNTER → 2025-05-14 | Outpatient (CLI) | payer BC ==
[2025-05-14 11:00] LABS: BASO # 0.1 10^3/uL (0.0-0.2); BASO % 0.8 % (0.0-1.0); EOS # 0.9 10^3/uL (0.0-0.5); EOS % 6.2 % (0.0-3.0); LYMPH # 0.9 10^3/uL (1.5-5.0); LYMPH % 6.3 % (24.0-44.0); MONO # 1.0 10^3/uL (0.0-0.8); MONO % 7.4 % (2.0-8.0); NEUTROPHILS # 11.1 10^3/uL (1.5-8.5); NEUTROPHILS % 79.0 % (36.0-66.0); PLATELET COUNT, AUTOMATED 332 10^3/uL (150-450)
[2025-05-14 11:05] LABS: ALT/SGPT 15.0 U/L (7.0-40); AST/SGOT 16.0 U/L (<34); CALCIUM LEVEL 10.0 MG/DL (8.3-10.6); CARBON DIOXIDE LEVEL 22.0 MMOL/L (20-31); CHLORIDE LEVEL 106.0 MMOL/L (98-107); CREATININE FOR GFR 1.02 MG/DL (0.70-1.30); GLOMERULAR FILTRATION RATE 83.6 (>49); POTASSIUM SERUM 4.1 MMOL/L (3.5-5.1); SODIUM LEVEL 138.0 MMOL/L (136-145)
== END ==
LOC: M PLALAB 07:55
PROVIDERS: ATTEND Family Medicine
DX: R19.7 Diarrhea, unspecified (principal); R53.81 Other malaise; R05.1 Acute cough

== ENCOUNTER → 2025-05-17 | Outpatient (CLI) | payer BC ==
[~2025-05-17] MED LIST changes: +E-Z-GAS II EFFERVESCENT PACKET (SODIUM BICARB./CITRIC ACID/SIMETHICONE) As Ordered ONE; +E-Z-HD 98% w/w 340 GM SUSP BTL As Ordered ONE; +E-Z-PAQUE 96% w/w SUSP 176 GM BTL As Ordered ONE
== END ==
LOC: M RAD 07:25
PROVIDERS: ATTEND Surgery
DX: K21.9 Gastro-esophageal reflux disease without esophagitis (principal)

== ENCOUNTER → 2025-05-18 | Outpatient (CLI) | payer BC ==
[~2025-05-18] MED LIST changes: -E-Z-GAS II EFFERVESCENT PACKET (SODIUM BICARB./CITRIC ACID/SIMETHICONE) As Ordered ONE; -E-Z-HD 98% w/w 340 GM SUSP BTL As Ordered ONE; -E-Z-PAQUE 96% w/w SUSP 176 GM BTL As Ordered ONE
== END ==
LOC: M ONCM 06:54
PROVIDERS: ATTEND Dietitian, Registered
DX: C49.A9 Gastrointestinal stromal tumor of other sites (principal); Z71.3 Dietary counseling and surveillance; Z68.1 Body mass index [BMI] 19.9 or less, adult

== ENCOUNTER 2025-06-21 15:52 | Emergency (ER) | payer BC ==
[~2025-06-21] VITALS: Ht 180.3 cm; Wt 59.3 kg
[2025-06-21 17:08] LABS: BASO # 0.1 10^3/uL (0.0-0.2); BASO % 1.1 % (0.0-1.0); EOS # 0.4 10^3/uL (0.0-0.5); EOS % 4.3 % (0.0-3.0); LYMPH # 1.2 10^3/uL (1.5-5.0); LYMPH % 15.2 % (24.0-44.0); MONO # 1.0 10^3/uL (0.0-0.8); MONO % 12.4 % (2.0-8.0); NEUTROPHILS # 5.5 10^3/uL (1.5-8.5); NEUTROPHILS % 66.6 % (36.0-66.0); PLATELET COUNT, AUTOMATED 295 10^3/uL (150-450)
[2025-06-21 17:39] LABS: ALT/SGPT 11 U/L (7.0-40); AST/SGOT 18 U/L (<34); CALCIUM LEVEL 9.8 MG/DL (8.3-10.6); CARBON DIOXIDE LEVEL 26 MMOL/L (20-31); CHLORIDE LEVEL 106 MMOL/L (98-107); CREATININE FOR GFR 1.05 MG/DL (0.70-1.30); GLOMERULAR FILTRATION RATE 80.8 (>49); POTASSIUM SERUM 4.2 MMOL/L (3.5-5.1); SODIUM LEVEL 143 MMOL/L (136-145)
[2025-06-21 20:22] VITALS: BP 176/79; TEMP 97.6; O2SAT 97
== END 2025-06-21 20:26 | disposition left against medical advice (07) ==
LOC: M ED 15:52
DX: Z53.21 Procedure and treatment not carried out due to patient leaving prior to being seen by health care provider (principal)